=== PATIENT | male | born 1940 | race Caucasian/White ===

== ENCOUNTER 2018-01-17 18:38 | Emergency (ER) | payer MEDICARE, BC ==
[2018-01-17] MEDS ORDERED: Sodium Chloride 0.9% 10 ML Syringe FLUSH PRN (19:09)
--- NOTE | 2018-01-17 19:21 | EDM.PDOC ---
ED HPI GENERAL MEDICAL PROBLEM - General Chief Complaint: Respiratory Problem Stated Complaint: SOB Time Seen by Provider: 01/17/18 19:05 Source of Information: Reports: Patient, Family History Limitations: Reports: No Limitations - History of Present Illness INITIAL COMMENTS - FREE TEXT/NARRATIVE: Mio is a 77-year-old male, history of hypertension, coronary artery disease status post stent placement, atrial fibrillation with pacemaker placement this last year, on warfarin who presents to the emergency department today with a 3 week history of orthopnea. Patient denies any URI symptoms, dyspnea on exertion , fever, chills. Patient denies any history of heart failure. He is currently on Hyzaar. Patient had his pacemaker placed in September of this year shortly thereafter he sustained a CVA with left-sided deficits which he has essentially completely recovered from. Patient reports that he has not been able to sleep for the last 3-4 nights secondary to the shortness of breath and has to sleep sitting up in a chair. Patient denies any lower extremity swelling or any recent weight gain. Patient denies any hemoptysis. Patient reports he has been eating and drinking well. Patient denies any chest pain, he did take one nitroglycerin prior to arrival here to see if this helped with his symptoms, he reports no relief with this. Onset: Gradual Duration: Week(s): (3) - Related Data Allergies Allergy/AdvReac Type Severity Reaction Status Date / Time bupropion [From Contrave] Allergy Nausea and Verified 01/17/18 20:31 Vomiting naltrexone [From Contrave] Allergy Nausea and Verified 01/17/18 20:31 Vomiting angiogram dye Allergy Hives Uncoded 01/17/18 20:31 Home Meds: Home Meds Acarbose [Precose] 50 mg PO TID 09/08/13 [History] Calcium Carb & Citrate/Vit D3 [Calcium + Vitamin D3 Caplet] 1 each PO DAILY [History] Cholecalciferol (Vitamin D3) [Vitamin D3] 5,000 units PO DAILY 09/08/13 [History ] Cyanocobalamin (Vitamin B-12) [Vitamin B-12] 1,000 mcg PO DAILY 09/08/13 [ History] Losartan/Hydrochlorothiazide [Hyzaar 100-12.5 Tablet] 1 each PO DAILY 09/08/13 [ History] Multivitamin [Multi-Vitamin Daily] 1 tab PO BID 09/08/13 [History] Vitamin B Complex 1 each PO DAILY 09/08/13 [History] Sotalol HCl [Sotalol] 40 mg PO BID 06/20/15 [History] Warfarin [Coumadin] 7.5 mg PO DAILY 06/20/15 [History] Aspirin [Lo-Dose Aspirin EC] 81 mg PO DAILY 09/18/17 [History] Liraglutide [Victoza] 0.6 mg SQ DAILY 09/18/17 [History] Nitroglycerin [Nitrostat] 0.4 mg SL ASDIRECTED 09/18/17 [History] Isosorbide Mononitrate [Imdur] 30 mg PO DAILY 01/17/18 [History] Past Medical History Cardiovascular History: Reports: Afib, CAD, Stents Genitourinary History: Reports: Prostate Disorder, Other (See Below) Other Genitourinary History: Frequent nocturnal urination Endocrine/Metabolic History: Reports: Diabetes, Type II, Other (See Below) Other Endocrine/Metabolic History: 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 - Infectious Disease History Infectious Disease History: Reports: Chicken Pox, Measles, Mumps - Past Surgical History HEENT Surgical History: Reports: Retinal, Other (See Below) Cardiovascular Surgical History: Reports: Cardiac Ablation GI Surgical History: Reports: Appendectomy, Bariatric Procedure, Colonoscopy, Other (See Below) Musculoskeletal Surgical History: Reports: Arthroscopic Knee, Other (See Below) Social & Family History - Family History Cardiac: Reports: CAD Oncologic: Reports: Uterine - Tobacco Use Smoking Status *Q: Never Smoker - Caffeine Use Caffeine Use: Reports: Coffee - Recreational Drug Use Recreational Drug Use: No ED ROS GENERAL - Review of Systems Review Of Systems: ROS reveals no pertinent complaints other than HPI. ED EXAM, GENERAL - Physical Exam Exam: See Below Exam Limited By: No Limitations General Appearance: Alert, WD/WN, No Apparent Distress Eye Exam: Bilateral Eye: EOMI Ears: Normal External Exam Respiratory/Chest: No Respiratory Distress, Lungs Clear, Normal Breath Sounds, Chest Non-Tender Cardiovascular: Normal Peripheral Pulses, No JVD, No Murmur, Other (None pitting lower extremity peripheral edema) GI/Abdominal: Normal Bowel Sounds, Soft, Non-Tender Extremities: Normal Inspection Neurological: Alert, Oriented, CN II-XII Intact Psychiatric: Normal Affect, Normal Mood Skin Exam: Warm, Dry, Intact Lymphatic: No Adenopathy EKG INTERPRETATION EKG Date: 01/17/18 Time: 19:36 Rhythm: Other (atrial paced) [place]: Normal P-Wave: Present QRS: Normal ST-T: Normal QT: Normal Comparison: Change From Previous EKG (Paced) Course - Vital Signs Last Recorded V/S: Last Vital Signs Temp 36.6 C 01/17/18 19:30 Pulse 60 01/17/18 20:15 Resp 12 01/17/18 19:48 BP 118/79 01/17/18 20:15 Pulse Ox 92 L 01/17/18 20:15 Patient did have a stress test on September 26 which revealed an ejection fraction of 67% there was a small perfusion defect in the inferior lateral wall towards the apex with normal wall motion. Mio is a 77-year-old male, history of recent CVA, pacemaker placement, on warfarin who presents to the emergency department today with 3 week history of orthopnea. Please refer to history of present illness and focused exam. Patient arrives here hemodynamically stable, he is afebrile, he is not hypoxic nor is he in any acute respiratory distress. Exam reveals clear lung sounds, he has no evidence of JVD or pitting edema. Concerns for failure although given his recent ejection fraction of 65% I feel this is unlikely. Question if this is a medication side effect that he has had no recent changes in his medications. Patient has had no upper respiratory symptoms, fever or chills to indicate a upper respiratory infection. EKG was obtained on arrival and is paced with no acute ischemic findings. Chest x-ray was obtained and is clear with no effusions or signs of failure/ fluid overload. Blood work today is reassuring with a normal white count, hemoglobin is very stable at 14.7. INR is mildly subtherapeutic at 1.88. [place] panel returns with a sodium of 139, BUN is mildly elevated at 20 and remaining CMP is within normal limits. Troponin is undetectable, d-dimer is negative. I discussed with patient his exam findings in test results today, it was at that time the patient did report he has not been wearing his CPAP machine for about the same duration as his orthopnea symptoms. Patient reports that his mask and doesn't seem to fit well any more and that he feels suffocated when he wears it. Patient was discussed in detail with patient importance of wearing this mask and the heart strain that sleep apnea can cause. I did request that patient follow up in clinic by Saturday or Saturday this next week, request was made on request here in the emergency department. Patient can discuss possible medication effects with regard to his symptoms as well as having his CPAP machine evaluated which I think is likely the major contributor in his presentation today. Patient for now was encouraged to continue his current medication regime. He was again educated on the importance of wearing his CPAP which she can certainly do if he is sitting in his chair that feels better than trying to lay down, reasons to return to the emergency department were discussed in detail with patient and his family, they're agreeable to plan of care patient was discharged in stable condition. - Orders/Labs/Meds Orders: Active Orders 24 hr Category Date Time Status EKG Documentation Completion [RC] ASDIRECTED Care 01/17/18 19:09 Active Peripheral IV Care [RC] . DIRECTED Care 01/17/18 19:09 Active Chest 2V [CR] Stat Exams 01/17/18 19:09 Taken Peripheral IV Insertion Adult [OM.PC] Routine Oth 01/17/18 19:09 Ordered EKG 12 Lead [EK] Stat Ther 01/17/18 19:08 Ordered Labs: Laboratory Tests 01/17/18 01/17/18 01/17/18 Range/Units 19:09 19:09 19:09 WBC 7.1 (4.5-11.0) K/uL RBC 4.99 (4.30-5.90) M/uL Hgb 14.7 (12.0-15.0) g/dL Hct 43.4 (40.0-54.0) % MCV 87 (80-98) fL MCH 30 (27-31) pg MCHC 34 (32-36) % Plt Count 311 (150-400) K/uL Neut % (Auto) 54 (36-66) % Lymph % (Auto) 32 (24-44) % [place] % (Auto) 11 H (2-6) % Eos % (Auto) 2 (2-4) % Baso % (Auto) 1 (0-1) % PT 20.0 H (9.5-12.0) sec INR 1.88 H (0.80-1.20) D-Dimer, Quantitative (0.0-400.0) ng/mL Sodium 139 L (140-148) mmol/L Potassium 3.9 (3.6-5.2) mmol/L Chloride 105 (100-108) mmol/L Carbon Dioxide 25 (21-32) mmol/L Anion Gap 12.9 (5.0-14.0) mmol/L BUN 20 H (7-18) mg/dL Creatinine 0.8 (0.8-1.3) mg/dL Est Cr Clr Drug Dosing 79.78 mL/min Estimated GFR (MDRD) > 60 (>60) Glucose 97 (74-106) mg/dL Calcium 8.9 (8.5-10.1) mg/dL Total Bilirubin 0.4 (0.2-1.0) mg/dL AST 23 (15-37) U/L ALT 32 (12-78) U/L Alkaline Phosphatase 59 (46-116) U/L Troponin I (0.000-0.056) ng/mL NT-Pro-B Natriuret Pep 49 (5-450) pg/mL Total Protein 6.9 (6.4-8.2) g/dL Albumin 3.7 (3.4-5.0) g/dL Globulin 3.2 (2.3-3.5) g/dL Albumin/Globulin Ratio 1.2 (1.2-2.2) 01/17/18 01/17/18 Range/Units 19:09 19:55 WBC (4.5-11.0) K/uL RBC (4.30-5.90) M/uL Hgb (12.0-15.0) g/dL Hct (40.0-54.0) % MCV (80-98) fL MCH (27-31) pg MCHC (32-36) % Plt Count (150-400) K/uL Neut % (Auto) (36-66) % Lymph % (Auto) (24-44) % [place] % (Auto) (2-6) % Eos % (Auto) (2-4) % Baso % (Auto) (0-1) % PT (9.5-12.0) sec INR (0.80-1.20) D-Dimer, Quantitative 170 (0.0-400.0) ng/mL Sodium (140-148) mmol/L Potassium (3.6-5.2) mmol/L Chloride (100-108) mmol/L Carbon Dioxide (21-32) mmol/L Anion Gap (5.0-14.0) mmol/L BUN (7-18) mg/dL Creatinine (0.8-1.3) mg/dL Est Cr Clr Drug Dosing mL/min Estimated GFR (MDRD) (>60) Glucose (74-106) mg/dL Calcium (8.5-10.1) mg/dL Total Bilirubin (0.2-1.0) mg/dL AST (15-37) U/L ALT (12-78) U/L Alkaline Phosphatase (46-116) U/L Troponin I < 0.017 (0.000-0.056) ng/mL NT-Pro-B Natriuret Pep (5-450) pg/mL Total Protein (6.4-8.2) g/dL Albumin (3.4-5.0) g/dL Globulin (2.3-3.5) g/dL Albumin/Globulin Ratio (1.2-2.2) Meds: Medications Discontinued Medications Generic Name Dose Route Start Last Admin Trade Name Freq PRN Reason Stop Dose Admin Sodium Chloride 10 ml 01/17/18 19:09 01/17/18 19:25 Saline Flush FLUSH 10 ml ASDIRECTED PRN Administration Keep Vein Open Departure - Departure Time of Disposition: 21:15 Disposition: Home, Self-Care 01 Clinical Impression: Orthopnea - Discharge Information Instructions: Sleep Apnea Referrals: Horace Sheridan PA [Primary Care Provider] - Forms: ED Department Discharge Additional Instructions: You need to wear your CPAP!!! I have left a request for your primary care clinic to call you to schedule an appt for Saturday or Saturday for follow up. You heart and lungs look great here today. It was a pleasure meeting you and your family. - My Orders Last 24 Hours: My Active Orders 01/17/18 19:08 EKG 12 Lead [EK] Stat 01/17/18 19:09 EKG Documentation Completion [RC] ASDIRECTED Peripheral IV Care [RC] . DIRECTED Chest 2V [CR] Stat Peripheral IV Insertion Adult [OM.PC] Routine - Assessment/Plan Last 24 Hours: My Active Orders 01/17/18 19:08 EKG 12 Lead [EK] Stat 01/17/18 19:09 EKG Documentation Completion [RC] ASDIRECTED Peripheral IV Care [RC] . DIRECTED Chest 2V [CR] Stat Peripheral IV Insertion Adult [OM.PC] Routine
[2018-01-17 20:15] VITALS: BP 118/79
--- NOTE | 2018-01-20 08:39 | CR ---
CHEST: 2 view CLINICAL HISTORY:Orthopnea COMPARISON:2016 FINDINGS: Heart size and pulmonary vascularity are normal. Patient has a permanent cardiac pacer. Th ere are atherosclerotic changes in the aorta.. There is a retrocardiac hiatal hernia. There are degen erative changes in the spine. Lung malin are clear. IMPRESSION: Permanent cardiac pacer in place No acute cardiopulmonary process
== END 2018-01-17 21:15 | disposition home or self-care (01) ==
LOC: JP.ED 18:38
DX: R06.01 Orthopnea (principal); Z88.8 Allergy status to other drugs, medicaments and biological substances; Z91.041 Radiographic dye allergy status; Z79.82 Long term (current) use of aspirin; Z79.899 Other long term (current) drug therapy
CPT/HCPCS: 36415; 71046; 80053; 83880; 84484; 85025; 85379; 85610; 93005; 99284; J7050

== ENCOUNTER 2018-02-25 14:52 | Emergency (ER) | payer MEDICARE, BC ==
--- NOTE | 2018-02-25 15:25 | EDM.PDOC ---
ED HPI GENERAL MEDICAL PROBLEM - General Chief Complaint: General Stated Complaint: FEELING UNWELL Time Seen by Provider: 02/25/18 15:20 Source of Information: Reports: Patient, Family History Limitations: Reports: No Limitations - History of Present Illness INITIAL COMMENTS - FREE TEXT/NARRATIVE: 77-year-old male with generalized weakness, persistent fatigue but inability to sleep. He feels depressed and having generalized malaise. He is on an antibiotic to treat a UTI. Onset: Gradual (Symptoms have worsened over the last several days) Severity: Moderate Associated Symptoms: Reports: Loss of Appetite, Malaise, Weakness. Denies: Confusion, Fever/Chills, Headaches, Shortness of Breath dENNIES Pain Score (Numeric/FACES): 0 - Related Data Allergies Allergy/AdvReac Type Severity Reaction Status Date / Time bupropion [From Contrave] Allergy Nausea and Verified 02/25/18 15:37 Vomiting naltrexone [From Contrave] Allergy Nausea and Verified 02/25/18 15:37 Vomiting angiogram dye Allergy Hives Uncoded 02/25/18 15:37 Home Meds: Home Meds Acarbose [Precose] 50 mg PO TID 09/08/13 [History] Calcium Carb & Citrate/Vit D3 [Calcium + Vitamin D3 Caplet] 1 each PO DAILY [History] Cholecalciferol (Vitamin D3) [Vitamin D3] 5,000 units PO DAILY 09/08/13 [History ] Cyanocobalamin (Vitamin B-12) [Vitamin B-12] 1,000 mcg PO DAILY 09/08/13 [ History] Losartan/Hydrochlorothiazide [Hyzaar 100-12.5 Tablet] 1 each PO DAILY 09/08/13 [ History] Multivitamin [Multi-Vitamin Daily] 1 tab PO BID 09/08/13 [History] Vitamin B Complex 1 each PO DAILY 09/08/13 [History] Sotalol HCl [Sotalol] 40 mg PO BID 06/20/15 [History] Warfarin [Coumadin] 7.5 mg PO DAILY 06/20/15 [History] Aspirin [Lo-Dose Aspirin EC] 81 mg PO DAILY 09/18/17 [History] Liraglutide [Victoza] 0.6 mg SQ DAILY 09/18/17 [History] Nitroglycerin [Nitrostat] 0.4 mg SL ASDIRECTED 09/18/17 [History] Isosorbide Mononitrate [Imdur] 30 mg PO DAILY 01/17/18 [History] Ciprofloxacin HCl [Cipro] 1 tab PO BID 02/25/18 [History] Escitalopram [Lexapro] 1 tab PO BEDTIME 02/25/18 [History] Polyethylene Glycol 3350 [MiraLAX] 1 pack PO ASDIRECTED 02/25/18 [History] busPIRone [Buspar] 1 tab PO DAILY 02/25/18 [History] Past Medical History Cardiovascular History: Reports: Afib, CAD, Stents Genitourinary History: Reports: Prostate Disorder, Other (See Below) Other Genitourinary History: Frequent nocturnal urination Endocrine/Metabolic History: Reports: Diabetes, Type II, Other (See Below) Other Endocrine/Metabolic History: 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 - Infectious Disease History Infectious Disease History: Reports: Chicken Pox, Measles, Mumps - Past Surgical History HEENT Surgical History: Reports: Retinal, Other (See Below) Cardiovascular Surgical History: Reports: Cardiac Ablation GI Surgical History: Reports: Appendectomy, Bariatric Procedure, Colonoscopy, Other (See Below) Musculoskeletal Surgical History: Reports: Arthroscopic Knee, Other (See Below) Social & Family History - Family History Cardiac: Reports: CAD Oncologic: Reports: Uterine - Caffeine Use Caffeine Use: Reports: Coffee ED ROS GENERAL - Review of Systems Review Of Systems: See Below Constitutional: Reports: Malaise, Weakness, Decreased Appetite. Denies: Fever, Chills HEENT: Reports: No Symptoms Respiratory: Denies: Shortness of Breath Cardiovascular: Denies: Chest Pain GI/Abdominal: Denies: Abdominal Pain, Nausea, Vomiting Musculoskeletal: Reports: No Symptoms Skin: Reports: Pallor Neurological: Denies: Headache Psychiatric: Reports: Anxiety, Depression, Other (Insomnia) ED EXAM, GENERAL - Physical Exam Exam: See Below Exam Limited By: No Limitations General Appearance: Alert, No Apparent Distress Eye Exam: Bilateral Eye: EOMI, Normal Inspection Throat/Mouth: Normal Inspection Head: Atraumatic Neck: Normal Inspection Respiratory/Chest: No Respiratory Distress, Lungs Clear Cardiovascular: No Murmur, Irregularly Irregular GI/Abdominal: Normal Bowel Sounds, Soft, Non-Tender Extremities: Normal Inspection. No: Pedal Edema Neurological: Alert, Oriented, No Motor/Sensory Deficits Psychiatric: Flat Affect Skin Exam: Warm, Dry Course - Vital Signs Last Recorded V/S: Last Vital Signs Temp 97.9 F 02/25/18 17:20 Pulse 72 02/25/18 17:20 Resp 18 02/25/18 17:20 BP 124/68 02/25/18 17:20 Pulse Ox 96 02/25/18 17:20 - Orders/Labs/Meds Labs: Laboratory Tests 02/25/18 02/25/18 02/25/18 Range/Units 15:48 15:48 15:59 WBC 7.4 (4.5-11.0) K/uL RBC 5.17 (4.30-5.90) M/uL Hgb 15.3 H (12.0-15.0) g/dL Hct 45.3 (40.0-54.0) % MCV 88 (80-98) fL MCH 30 (27-31) pg MCHC 34 (32-36) % Plt Count 261 (150-400) K/uL Neut % (Auto) 63 (36-66) % Lymph % (Auto) 25 (24-44) % [place] % (Auto) 11 H (2-6) % Eos % (Auto) 1 L (2-4) % Baso % (Auto) 0 (0-1) % ESR 5 (0-20) mm/hr Sodium 139 L (140-148) mmol/L Potassium 4.0 (3.6-5.2) mmol/L Chloride 104 (100-108) mmol/L Carbon Dioxide 28 (21-32) mmol/L Anion Gap 11.0 (5.0-14.0) mmol/L BUN 19 H (7-18) mg/dL Creatinine 0.9 (0.8-1.3) mg/dL Est Cr Clr Drug Dosing 70.92 mL/min Estimated GFR (MDRD) > 60 (>60) Glucose 92 (74-106) mg/dL Calcium 8.7 (8.5-10.1) mg/dL Total Bilirubin 0.5 (0.2-1.0) mg/dL AST 24 (15-37) U/L ALT 34 (12-78) U/L Alkaline Phosphatase 53 (46-116) U/L Creatine Kinase 57 (39-308) U/L Total Protein 6.8 (6.4-8.2) g/dL Albumin 3.6 (3.4-5.0) g/dL Globulin 3.2 (2.3-3.5) g/dL Albumin/Globulin Ratio 1.1 L (1.2-2.2) TSH, Ultra Sensitive 1.500 (0.358-3.740) uIU/mL Urine Color Yellow Urine Appearance Slightly cloudy Urine pH 6.0 (4.5-8.0) Ur Specific [place] 1.010 (1.008-1.030) Urine Protein Negative (NEGATIVE) mg/dL Urine Glucose (UA) Normal (NEGATIVE) mg/dL Urine Ketones Negative (NEGATIVE) mg/dL Urine Occult Blood Negative (NEGATIVE) Urine Nitrite Negative (NEGAITVE) Urine Bilirubin Negative (NEGATIVE) Urine Urobilinogen Normal (NORMAL) mg/dL Ur Leukocyte Esterase Negative (NEGATIVE) Urine RBC Not seen (0-5) Urine WBC Not seen (0-5) Ur Epithelial Cells Not seen Amorphous Sediment Rare Urine Bacteria Not seen Urine Mucus Rare Meds: Medications Discontinued Medications Generic Name Dose Route Start Last Admin Trade Name Freq PRN Reason Stop Dose Admin Sodium Chloride 1,000 mls @ 1,000 mls/hr 02/25/18 16:15 02/25/18 16:14 Normal Saline IV 1,000 mls/hr ASDIRECTED [facility] Administration - Re-Assessments/Exams Free Text/Narrative Re-Assessment/Exam: 02/25/18 16:39 A UA was obtained which showed no active infection, there was some bacteria but also epithelial cells. Likely contamination. CBC, CMP, CK and sedimentation rate were obtained. Also TSH. Patient was placed on cardiac monitoring and had atrial fibrillation with a controlled rate of 70-80. He is on anticoagulation. 02/25/18 17:05 CBC, CMP, CK were all normal, sedimentation rate was only 5. TSH was normal. 02/25/18 17:06 After the liter of fluid was given, patient was discharged with reassurance that physically he is healthy. He is going to stop the ciprofloxacin, it may be giving him some side effects. Recheck as scheduled. He can return if worsening such as fevers, shortness of breath or increased weakness. Departure - Departure Time of Disposition: 17:37 Disposition: Home, Self-Care 01 Condition: Fair Clinical Impression: Weakness generalized Atrial fibrillation Qualifiers: Atrial fibrillation type: paroxysmal Qualified Code(s): I48.0 - Paroxysmal atrial fibrillation - Discharge Information Instructions: Weakness Referrals: Horace Sheridan PA [Primary Care Provider] - Forms: ED Department Discharge Care Plan Goals: Stop ciprofloxacin, increase activity as tolerated and continue your other medications. Do something fun. Recheck if worsening or concerns such as fever or shortness of breath. Otherwise recheck as scheduled.
[2018-02-25] MEDS ORDERED: Sodium Chloride 0.9% 1,000 ML IV SCH (16:15)
[2018-02-25 17:36] VITALS: BP 124/68
== END 2018-02-25 17:37 | disposition home or self-care (01) ==
LOC: JP.ED 14:52
DX: I48.0 Paroxysmal atrial fibrillation (principal); E11.9 Type 2 diabetes mellitus without complications; Z79.82 Long term (current) use of aspirin; Z79.01 Long term (current) use of anticoagulants; Z91.041 Radiographic dye allergy status; Z88.8 Allergy status to other drugs, medicaments and biological substances
CPT/HCPCS: 36415; 80053; 81001; 82550; 84443; 85025; 85651; 99285; J7030

== ENCOUNTER 2018-11-08 06:33 | Inpatient (IN) | payer MEDICARE, BC ==
[2018-11-08] MEDS ORDERED: Sodium Chloride 0.9% 1,000 ML IV SCH ×3 (07:15→14:00)
--- NOTE | 2018-11-08 07:37 | EDM.PDOC ---
ED HPI GENERAL MEDICAL PROBLEM - General Chief Complaint: Chest Pain Stated Complaint: NOT ACTING JUST RIGHT BECAME STIFF Time Seen by Provider: 11/08/18 07:35 Source of Information: Reports: Patient, Family History Limitations: Reports: No Limitations - History of Present Illness INITIAL COMMENTS - FREE TEXT/NARRATIVE: pt got up to take his insulin this am and he had a possible brief loss of consciouness. He looked like he kind of stiffened out. 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 He has recovered alot of his strength. He is alert at this time and is able to answer questions. Onset: Today, Other (pt had a syncopal episode and did stiffen out. ) Duration: Hour(s): Location: Reports: Head, Chest, Abdomen, Other (pt did have some black tarry looking stools for several days at home. His occult blood was neg today. ) denies pain Pain Score (Numeric/FACES): 0 - Related Data Allergies Allergy/AdvReac Type Severity Reaction Status Date / Time bupropion [From Contrave] Allergy Nausea and Verified 11/08/18 06:43 Vomiting naltrexone [From Contrave] Allergy Nausea and Verified 11/08/18 06:43 Vomiting angiogram dye Allergy Hives Uncoded 11/08/18 06:43 Home Meds: Home Meds Acarbose [Precose] 50 mg PO TID 09/08/13 [History] Calcium Carb & Citrate/Vit D3 [Calcium + Vitamin D3 Caplet] 1 each PO DAILY [History] Cholecalciferol (Vitamin D3) [Vitamin D3] 5,000 units PO DAILY 09/08/13 [History ] Cyanocobalamin (Vitamin B-12) [Vitamin B-12] 1,000 mcg PO DAILY 09/08/13 [ History] Losartan/Hydrochlorothiazide [Hyzaar 100-12.5 Tablet] 1 each PO DAILY 09/08/13 [ History] Multivitamin [Multi-Vitamin Daily] 1 tab PO BID 09/08/13 [History] Vitamin B Complex 1 each PO DAILY 09/08/13 [History] Sotalol HCl [Sotalol] 40 mg PO BID 06/20/15 [History] Warfarin [Coumadin] 7.5 mg PO DAILY 06/20/15 [History] Aspirin [Lo-Dose Aspirin EC] 81 mg PO DAILY 09/18/17 [History] Liraglutide [Victoza] 0.6 mg SQ DAILY 09/18/17 [History] Nitroglycerin [Nitrostat] 0.4 mg SL ASDIRECTED 09/18/17 [History] Isosorbide Mononitrate [Imdur] 30 mg PO DAILY 01/17/18 [History] Escitalopram [Lexapro] 1 tab PO BEDTIME 02/25/18 [History] Polyethylene Glycol 3350 [MiraLAX] 1 pack PO ASDIRECTED 02/25/18 [History] busPIRone [Buspar] 1 tab PO DAILY 02/25/18 [History] Warfarin Sodium [Coumadin] 10 mg PO ASDIRECTED 11/08/18 [History] Past Medical History HEENT History: Reports: Hard of Hearing, Impaired Vision Cardiovascular History: Reports: Afib, CAD, Pacemaker, Stents Genitourinary History: Reports: Prostate Disorder, Other (See Below) Other Genitourinary History: Frequent nocturnal urination Neurological History: Reports: CVA, Other (See Below) Other Neuro History: 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 Endocrine/Metabolic History: Reports: Diabetes, Type II, Other (See Below) Other Endocrine/Metabolic History: 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 Hematologic History: Reports: Anticoagulation Therapy - Infectious Disease History Infectious Disease History: Reports: Chicken Pox, Measles, Mumps - Past Surgical History HEENT Surgical History: Reports: Cataract Surgery, Retinal Cardiovascular Surgical History: Reports: Cardiac Ablation GI Surgical History: Reports: Appendectomy, Bariatric Procedure, Colonoscopy Musculoskeletal Surgical History: Reports: Arthroscopic Knee Social & Family History - Family History Cardiac: Reports: CAD Oncologic: Reports: Uterine - Tobacco Use Smoking Status *Q: Never Smoker - Caffeine Use Caffeine Use: Reports: Coffee - Recreational Drug Use Recreational Drug Use: No ED ROS GENERAL - Review of Systems Review Of Systems: See Below Constitutional: Reports: Weakness HEENT: Reports: No Symptoms Respiratory: Reports: No Symptoms Cardiovascular: Reports: No Symptoms Endocrine: Reports: No Symptoms GI/Abdominal: Reports: Other (pt has had some pain in his abdoman off and on. ) : Reports: No Symptoms Musculoskeletal: Reports: No Symptoms Skin: Reports: No Symptoms Neurological: Reports: No Symptoms ED EXAM, GENERAL - Physical Exam Exam: See Below Free Text/Narrative:: pt arived with a history of passing out at home and stiffing out. He was up this am and was taking his insulin. Exam Limited By: No Limitations General Appearance: Alert, No Apparent Distress, Other ( Just as he pulled into the ambulance entrace he had some chest pain which lasted a few seconds. Pupils are equal and reactive. ) Ears: Normal TMs Nose: Normal Inspection Throat/Mouth: Normal Inspection Head: Atraumatic Neck: Normal Inspection Respiratory/Chest: No Respiratory Distress Cardiovascular: Regular Rate, Rhythm GI/Abdominal: Soft, Non-Tender (Male) Exam: Deferred Rectal (Males) Exam: Other (pt did have some very dark looking stool on rectal exam. He did not have any palpable masses. ) Back Exam: Normal Inspection Extremities: Normal Inspection Neurological: Alert, Oriented, Normal Cognition Psychiatric: Anxious Skin Exam: Other (p did look very pale and and he was diaphoretic. ) Course - Vital Signs Last Recorded V/S: Last Vital Signs Temp 35.1 C L 11/08/18 06:47 Pulse 60 11/08/18 08:27 Resp 12 11/08/18 08:27 BP 94/55 L 11/08/18 08:27 Pulse Ox 98 11/08/18 08:27 - Orders/Labs/Meds Orders: Active Orders 24 hr Category Date Time Status EKG Documentation Completion [RC] ASDIRECTED Care 11/08/18 08:07 Active RED BLOOD CELLS LP [BBK] Stat Lab 11/08/18 07:33 Results TYPE AND SCREEN [BBK] Stat Lab 11/08/18 07:33 Results Sodium Chloride 0.9% [Normal Saline] 1,000 ml Med 11/08/18 07:15 Active IV ASDIRECTED Sodium Chloride 0.9% [Normal Saline] 1,000 ml Med 11/08/18 08:15 Active IV ASDIRECTED EKG 12 Lead [EK] Routine Ther 11/08/18 08:07 Ordered Medication Orders Sodium Chloride (Normal Saline) 1,000 mls @ 999 mls/hr IV ASDIRECTED PERLA Last Admin: 11/08/18 07:35 Dose: 999 mls/hr Sodium Chloride (Normal Saline) 1,000 mls @ 999 mls/hr IV ASDIRECTED PERLA Last Admin: 11/08/18 08:09 Dose: 999 mls/hr Labs: Laboratory Tests 11/08/18 11/08/18 11/08/18 Range/Units 07:20 07:20 07:20 WBC 8.4 (4.5-11.0) K/uL RBC 3.88 L (4.30-5.90) M/uL Hgb 11.3 L D (12.0-15.0) g/dL Hct 35.1 L (40.0-54.0) % MCV 91 (80-98) fL MCH 29 (27-31) pg MCHC 32 (32-36) % Plt Count 257 (150-400) K/uL Neut % (Auto) 75 H (36-66) % Lymph % (Auto) 18 L (24-44) % [place] % (Auto) 6 (2-6) % Eos % (Auto) 1 L (2-4) % Baso % (Auto) 0 (0-1) % PT 44.7 H (9.5-12.0) sec INR 4.42 H* D (0.80-1.20) Sodium 142 (140-148) mmol/L Potassium 4.1 (3.6-5.2) mmol/L Chloride 108 (100-108) mmol/L Carbon Dioxide 25 (21-32) mmol/L Anion Gap 8.7 (5.0-14.0) mmol/L BUN 45 H D (7-18) mg/dL Creatinine 0.9 (0.8-1.3) mg/dL Est Cr Clr Drug Dosing 65.28 mL/min Estimated GFR (MDRD) > 60 (>60) Glucose 149 H (74-106) mg/dL Lactic Acid (0.4-2.0) mmol/L Calcium 8.3 L (8.5-10.1) mg/dL Total Bilirubin 0.3 (0.2-1.0) mg/dL AST 21 (15-37) U/L ALT 41 (12-78) U/L Alkaline Phosphatase 44 L (46-116) U/L Troponin I (0.000-0.056) ng/mL Total Protein 5.6 L (6.4-8.2) g/dL Albumin 2.9 L (3.4-5.0) g/dL Globulin 2.7 (2.3-3.5) g/dL Albumin/Globulin Ratio 1.1 L (1.2-2.2) Urine Color Urine Appearance Urine pH (4.5-8.0) Ur Specific [place] (1.008-1.030) Urine Protein (NEGATIVE) mg/dL Urine Glucose (UA) (NEGATIVE) mg/dL Urine Ketones (NEGATIVE) mg/dL Urine Occult Blood (NEGATIVE) Urine Nitrite (NEGAITVE) Urine Bilirubin (NEGATIVE) Urine Urobilinogen (NORMAL) mg/dL Ur Leukocyte Esterase (NEGATIVE) Urine RBC (0-5) Urine WBC (0-5) Ur Epithelial Cells Amorphous Sediment Urine Bacteria Urine Mucus Blood Type Gel Antibody Screen Crossmatch 11/08/18 11/08/18 11/08/18 Range/Units 07:33 07:37 08:06 WBC (4.5-11.0) K/uL RBC (4.30-5.90) M/uL Hgb (12.0-15.0) g/dL Hct (40.0-54.0) % MCV (80-98) fL MCH (27-31) pg MCHC (32-36) % Plt Count (150-400) K/uL Neut % (Auto) (36-66) % Lymph % (Auto) (24-44) % [place] % (Auto) (2-6) % Eos % (Auto) (2-4) % Baso % (Auto) (0-1) % PT (9.5-12.0) sec INR (0.80-1.20) Sodium (140-148) mmol/L Potassium (3.6-5.2) mmol/L Chloride (100-108) mmol/L Carbon Dioxide (21-32) mmol/L Anion Gap (5.0-14.0) mmol/L BUN (7-18) mg/dL Creatinine (0.8-1.3) mg/dL Est Cr Clr Drug Dosing mL/min Estimated GFR (MDRD) (>60) Glucose (74-106) mg/dL Lactic Acid 1.8 (0.4-2.0) mmol/L Calcium (8.5-10.1) mg/dL Total Bilirubin (0.2-1.0) mg/dL AST (15-37) U/L ALT (12-78) U/L Alkaline Phosphatase (46-116) U/L Troponin I < 0.017 (0.000-0.056) ng/mL Total Protein (6.4-8.2) g/dL Albumin (3.4-5.0) g/dL Globulin (2.3-3.5) g/dL Albumin/Globulin Ratio (1.2-2.2) Urine Color Urine Appearance Urine pH (4.5-8.0) Ur Specific [place] (1.008-1.030) Urine Protein (NEGATIVE) mg/dL Urine Glucose (UA) (NEGATIVE) mg/dL Urine Ketones (NEGATIVE) mg/dL Urine Occult Blood (NEGATIVE) Urine Nitrite (NEGAITVE) Urine Bilirubin (NEGATIVE) Urine Urobilinogen (NORMAL) mg/dL Ur Leukocyte Esterase (NEGATIVE) Urine RBC (0-5) Urine WBC (0-5) Ur Epithelial Cells Amorphous Sediment Urine Bacteria Urine Mucus Blood Type A POSITIVE Gel Antibody Screen Negative Crossmatch See Detail 11/08/18 Range/Units 08:26 WBC (4.5-11.0) K/uL RBC (4.30-5.90) M/uL Hgb (12.0-15.0) g/dL Hct (40.0-54.0) % MCV (80-98) fL MCH (27-31) pg MCHC (32-36) % Plt Count (150-400) K/uL Neut % (Auto) (36-66) % Lymph % (Auto) (24-44) % [place] % (Auto) (2-6) % Eos % (Auto) (2-4) % Baso % (Auto) (0-1) % PT (9.5-12.0) sec INR (0.80-1.20) Sodium (140-148) mmol/L Potassium (3.6-5.2) mmol/L Chloride (100-108) mmol/L Carbon Dioxide (21-32) mmol/L Anion Gap (5.0-14.0) mmol/L BUN (7-18) mg/dL Creatinine (0.8-1.3) mg/dL Est Cr Clr Drug Dosing mL/min Estimated GFR (MDRD) (>60) Glucose (74-106) mg/dL Lactic Acid (0.4-2.0) mmol/L Calcium (8.5-10.1) mg/dL Total Bilirubin (0.2-1.0) mg/dL AST (15-37) U/L ALT (12-78) U/L Alkaline Phosphatase (46-116) U/L Troponin I (0.000-0.056) ng/mL Total Protein (6.4-8.2) g/dL Albumin (3.4-5.0) g/dL Globulin (2.3-3.5) g/dL Albumin/Globulin Ratio (1.2-2.2) Urine Color Yellow Urine Appearance Clear Urine pH 6.0 (4.5-8.0) Ur Specific [place] 1.015 (1.008-1.030) Urine Protein Negative (NEGATIVE) mg/dL Urine Glucose (UA) Normal (NEGATIVE) mg/dL Urine Ketones Negative (NEGATIVE) mg/dL Urine Occult Blood Negative (NEGATIVE) Urine Nitrite Negative (NEGAITVE) Urine Bilirubin Negative (NEGATIVE) Urine Urobilinogen Normal (NORMAL) mg/dL Ur Leukocyte Esterase Negative (NEGATIVE) Urine RBC Not seen (0-5) Urine WBC Not seen (0-5) Ur Epithelial Cells Not seen Amorphous Sediment Not seen Urine Bacteria Not seen Urine Mucus Not seen Blood Type Gel Antibody Screen Crossmatch Meds: Medications Generic Name Dose Route Start Last Admin Trade Name Freq PRN Reason Stop Dose Admin Sodium Chloride 1,000 mls @ 999 mls/hr 11/08/18 07:15 11/08/18 07:35 Normal Saline IV 999 mls/hr ASDIRECTED PERLA Administration Sodium Chloride 1,000 mls @ 999 mls/hr 11/08/18 08:15 11/08/18 08:09 Normal Saline IV 999 mls/hr ASDIRECTED PERLA Administration Discontinued Medications Generic Name Dose Route Start Last Admin Trade Name Freq PRN Reason Stop Dose Admin Phytonadione 3 mg/ Sodium 50.3 mls @ 100 mls/hr 11/08/18 08:30 11/08/18 08:32 Chloride IV 11/08/18 09:00 100 mls/hr ONETIME ONE Administration - Re-Assessments/Exams Free Text/Narrative Re-Assessment/Exam: 11/08/18 09:17 pt did have a neg occult. His inr is greater than 4. He was given 3 mg of vit k in the lite that he had black tarry stools for several days and had a hg of 11. He had a cat scan of the head. His trop was neg. He had a clear urine and and a neg lactic acid. His ekg showed a paced rhythm Pt was very hypotensive and was given 2 liters of fluid. He is alert and able to give a good history. . 11/08/18 09:19 Departure - Departure Time of Disposition: 09:20 Disposition: Admitted As Inpatient 68 Condition: Fair Clinical Impression: Hypotension, Anemia, Elevated INR, Dehydration Atrial fibrillation Qualifiers: Atrial fibrillation type: paroxysmal Qualified Code(s): I48.0 - Paroxysmal atrial fibrillation Referrals: Horace Sheridan PA [Primary Care Provider] - Forms: ED Department Discharge Care Plan Goals: admit to Dr boston - My Orders Last 24 Hours: My Active Orders 11/08/18 07:15 Sodium Chloride 0.9% [Normal Saline] 1,000 ml IV ASDIRECTED 11/08/18 07:33 RED BLOOD CELLS LP [BBK] Stat TYPE AND SCREEN [BBK] Stat 11/08/18 08:07 EKG Documentation Completion [RC] ASDIRECTED EKG 12 Lead [EK] Routine 11/08/18 08:15 Sodium Chloride 0.9% [Normal Saline] 1,000 ml IV ASDIRECTED - Assessment/Plan Last 24 Hours: My Active Orders 11/08/18 07:15 Sodium Chloride 0.9% [Normal Saline] 1,000 ml IV ASDIRECTED 11/08/18 07:33 RED BLOOD CELLS LP [BBK] Stat TYPE AND SCREEN [BBK] Stat 11/08/18 08:07 EKG Documentation Completion [RC] ASDIRECTED EKG 12 Lead [EK] Routine 11/08/18 08:15 Sodium Chloride 0.9% [Normal Saline] 1,000 ml IV ASDIRECTED
[2018-11-08] MEDS ORDERED: Phytonadione 3 MG in Sodium Chloride 0.9% 50 ML IV ONE ×2 (07:46→08:30)
--- NOTE | 2018-11-08 09:04 | CRLCT ---
INDICATION: Loss of consciousness. TECHNIQUE: 3 mm noncontrast axial imaging has been performed through the brain. FINDINGS: Ventricles, sulci, and cisterns are prominent consistent with generalized cerebral atrophy. Some cerebellar atrophy also noted. No acute intracerebral hemorrhage or midline shift is identified. No regional infarct noted. No skull fracture is noted. Upper paranasal sinuses and mastoid air cells are clear. IMPRESSION: Generalized cerebral atrophy is noted. No acute intracerebral hemorrhage or midline shift is seen. No regional infarct is seen. Dictated by Dimas Vera MD @ 11/08/2018 9:03:03 AM Please note that all CT scans at this facility use dose modulation, iterative reconstruction, and/or weight-based dosing when appropriate to reduce radiation dose to as low as reasonably achievable. Dictated by: Dimas Vera MD @ 11/08/2018 09:03:08 (Electronically Signed)
--- NOTE | 2018-11-08 13:21 | PCM.HP ---
H&P History of Present Illness - General Date of Service: 11/08/18 Admit Problem/Dx: Admission Diagnosis/Problem Admission Diagnosis/Problem Syncope Source of Information: Patient, Provider, RN Notes Reviewed History Limitations: Reports: No Limitations - History of Present Illness Initial Comments - Free Text/Narative: Adarsh is a 78-year-old gentleman who was admitted through the emergency department with weakness, lightheadedness, shortness of breath and syncope, secondary to upper GI bleed. He felt well until about 36 hours prior to admission when he noted symptoms of weakness and then began to have very dark black tarry stools. He felt weak throughout the day yesterday and this morning experienced to transient syncopal episodes. When he presented to the emergency department was found to be hypotensive and has received IV fluids. Hemoglobin was down to 11 and on recheck after a few hours is now 10. He is on oral anticoagulation with warfarin and his INR was found to be supratherapeutic at above 4. He has received 3 units of vitamin K in the emergency department. He is required more vigorous fluid boluses because of persistent hypotension, likely indicating ongoing active bleeding. He denies any symptoms of chest pain or pressure in his level of dyspnea has been stable. Blood pressure has improved modestly with IV fluid infusion. denies pain Pain Score (Numeric/FACES): 0 - Related Data Allergies/Adverse Reactions: Allergies Allergy/AdvReac Type Severity Reaction Status Date / Time bupropion [From Contrave] Allergy Nausea and Verified 11/08/18 06:43 Vomiting naltrexone [From Contrave] Allergy Nausea and Verified 11/08/18 06:43 Vomiting angiogram dye Allergy Hives Uncoded 11/08/18 06:43 Home Medications: Home Meds Acarbose [Precose] 50 mg PO TID 09/08/13 [History] Calcium Carb & Citrate/Vit D3 [Calcium + Vitamin D3 Caplet] 1 each PO DAILY [History] Cholecalciferol (Vitamin D3) [Vitamin D3] 5,000 units PO DAILY 09/08/13 [History ] Cyanocobalamin (Vitamin B-12) [Vitamin B-12] 1,000 mcg PO DAILY 09/08/13 [ History] Losartan/Hydrochlorothiazide [Hyzaar 100-12.5 Tablet] 1 each PO DAILY 09/08/13 [ History] Multivitamin [Multi-Vitamin Daily] 1 tab PO BID 09/08/13 [History] Vitamin B Complex 1 each PO DAILY 09/08/13 [History] Sotalol HCl [Sotalol] 40 mg PO BID 06/20/15 [History] Warfarin [Coumadin] 7.5 mg PO DAILY 06/20/15 [History] Aspirin [Lo-Dose Aspirin EC] 81 mg PO DAILY 09/18/17 [History] Liraglutide [Victoza] 0.6 mg SQ DAILY 09/18/17 [History] Nitroglycerin [Nitrostat] 0.4 mg SL ASDIRECTED 09/18/17 [History] Isosorbide Mononitrate [Imdur] 30 mg PO DAILY 01/17/18 [History] Escitalopram [Lexapro] 1 tab PO BEDTIME 02/25/18 [History] Polyethylene Glycol 3350 [MiraLAX] 1 pack PO ASDIRECTED 02/25/18 [History] busPIRone [Buspar] 1 tab PO DAILY 02/25/18 [History] Warfarin Sodium [Coumadin] 10 mg PO ASDIRECTED 11/08/18 [History] Past Medical History HEENT History: Reports: Hard of Hearing, Impaired Vision Cardiovascular History: Reports: Afib, CAD, Pacemaker, Stents Genitourinary History: Reports: Prostate Disorder, Other (See Below) Other Genitourinary History: Frequent nocturnal urination Neurological History: Reports: CVA, Other (See Below) Other Neuro History: 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 Endocrine/Metabolic History: Reports: Diabetes, Type II, Other (See Below) Other Endocrine/Metabolic History: 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 Hematologic History: Reports: Anticoagulation Therapy - Infectious Disease History Infectious Disease History: Reports: Chicken Pox, Measles, Mumps - Past Surgical History HEENT Surgical History: Reports: Cataract Surgery, Retinal Cardiovascular Surgical History: Reports: Cardiac Ablation GI Surgical History: Reports: Appendectomy, Bariatric Procedure, Colonoscopy Musculoskeletal Surgical History: Reports: Arthroscopic Knee Social & Family History - Family History Cardiac: Reports: CAD Oncologic: Reports: Uterine - Tobacco Use Smoking Status *Q: Never Smoker - Caffeine Use Caffeine Use: Reports: Coffee - Recreational Drug Use Recreational Drug Use: No H&P Review of Systems - Review of Systems: Review Of Systems: See Below General: Reports: Malaise, Weakness. Denies: Fever, Chills HEENT: Reports: No Symptoms Pulmonary: Reports: Shortness of Breath. Denies: Wheezing, Pleuritic Chest Pain , Cough, Sputum, Hemoptysis Cardiovascular: Reports: Dyspnea on Exertion, Lightheadedness, Syncope. Denies : Chest Pain, Palpitations, Orthopnea, PND, Edema Gastrointestinal: Reports: Diarrhea, Decreased Appetite, Melena. Denies: Abdominal Pain, Nausea, Vomiting Genitourinary: Reports: No Symptoms Musculoskeletal: Reports: No Symptoms Skin: Reports: No Symptoms Psychiatric: Reports: No Symptoms Neurological: Reports: No Symptoms Hematologic/Lymphatic: Reports: No Symptoms Immunologic: Reports: No Symptoms Exam - Exam Exam: See Below - Vital Signs Vital Signs: Last Vital Signs Temp 95.2 F L 11/08/18 06:47 Pulse 60 11/08/18 11:56 Resp 15 11/08/18 11:56 BP 70/41 L 11/08/18 11:56 Pulse Ox 97 11/08/18 11:56 Weight: 205 lb - Exam General: Alert, Oriented, Cooperative, Moderate Distress HEENT: Conjunctiva Clear, Hearing Intact, Normal Nasal Septum, Posterior Pharynx Clear, Pupils Equal. No: Mucosa Moist & [place] Neck: Supple, Trachea Midline, +2 Carotid Pulse wo Bruit Lungs: Clear to Auscultation, Normal Respiratory Effort Cardiovascular: Regular Rate, Regular Rhythm, Normal S1, Normal S2. No: Systolic Murmur, Diastolic Murmur GI/Abdominal Exam: Soft, Non-Tender, No Organomegaly, No Distention Back Exam: Normal Inspection, Full Range of Motion Extremities: Non-Tender, No Pedal Edema Skin: Warm, Dry, Intact Neurological: Cranial Nerves Intact, Strength Equal Bilateral, Normal Speech, Normal Tone, Sensation Intact. No: Focal Deficit Neuro Extensive - Mental Status: Alert, Oriented x3, Normal Mood/Affect, Normal Cognition, Memory Intact - Patient Data Lab Results Last 24 hrs: Laboratory Results - last 24 hr 11/08/18 11/08/18 11/08/18 Range/Units 07:20 07:20 07:20 WBC 8.4 (4.5-11.0) K/uL RBC 3.88 L (4.30-5.90) M/uL Hgb 11.3 L D (12.0-15.0) g/dL Hct 35.1 L (40.0-54.0) % MCV 91 (80-98) fL MCH 29 (27-31) pg MCHC 32 (32-36) % Plt Count 257 (150-400) K/uL Neut % (Auto) 75 H (36-66) % Lymph % (Auto) 18 L (24-44) % [place] % (Auto) 6 (2-6) % Eos % (Auto) 1 L (2-4) % Baso % (Auto) 0 (0-1) % PT 44.7 H (9.5-12.0) sec INR 4.42 H* D (0.80-1.20) Sodium 142 (140-148) mmol/L Potassium 4.1 (3.6-5.2) mmol/L Chloride 108 (100-108) mmol/L Carbon Dioxide 25 (21-32) mmol/L Anion Gap 8.7 (5.0-14.0) mmol/L BUN 45 H D (7-18) mg/dL Creatinine 0.9 (0.8-1.3) mg/dL Est Cr Clr Drug Dosing 65.28 mL/min Estimated GFR (MDRD) > 60 (>60) Glucose 149 H (74-106) mg/dL Lactic Acid (0.4-2.0) mmol/L Calcium 8.3 L (8.5-10.1) mg/dL Total Bilirubin 0.3 (0.2-1.0) mg/dL AST 21 (15-37) U/L ALT 41 (12-78) U/L Alkaline Phosphatase 44 L (46-116) U/L Troponin I (0.000-0.056) ng/mL Total Protein 5.6 L (6.4-8.2) g/dL Albumin 2.9 L (3.4-5.0) g/dL Globulin 2.7 (2.3-3.5) g/dL Albumin/Globulin Ratio 1.1 L (1.2-2.2) Urine Color Urine Appearance Urine pH (4.5-8.0) Ur Specific [place] (1.008-1.030) Urine Protein (NEGATIVE) mg/dL Urine Glucose (UA) (NEGATIVE) mg/dL Urine Ketones (NEGATIVE) mg/dL Urine Occult Blood (NEGATIVE) Urine Nitrite (NEGAITVE) Urine Bilirubin (NEGATIVE) Urine Urobilinogen (NORMAL) mg/dL Ur Leukocyte Esterase (NEGATIVE) Urine RBC (0-5) Urine WBC (0-5) Ur Epithelial Cells Amorphous Sediment Urine Bacteria Urine Mucus Blood Type Gel Antibody Screen Crossmatch 11/08/18 11/08/18 11/08/18 Range/Units 07:33 07:37 08:06 WBC (4.5-11.0) K/uL RBC (4.30-5.90) M/uL Hgb (12.0-15.0) g/dL Hct (40.0-54.0) % MCV (80-98) fL MCH (27-31) pg MCHC (32-36) % Plt Count (150-400) K/uL Neut % (Auto) (36-66) % Lymph % (Auto) (24-44) % [place] % (Auto) (2-6) % Eos % (Auto) (2-4) % Baso % (Auto) (0-1) % PT (9.5-12.0) sec INR (0.80-1.20) Sodium (140-148) mmol/L Potassium (3.6-5.2) mmol/L Chloride (100-108) mmol/L Carbon Dioxide (21-32) mmol/L Anion Gap (5.0-14.0) mmol/L BUN (7-18) mg/dL Creatinine (0.8-1.3) mg/dL Est Cr Clr Drug Dosing mL/min Estimated GFR (MDRD) (>60) Glucose (74-106) mg/dL Lactic Acid 1.8 (0.4-2.0) mmol/L Calcium (8.5-10.1) mg/dL Total Bilirubin (0.2-1.0) mg/dL AST (15-37) U/L ALT (12-78) U/L Alkaline Phosphatase (46-116) U/L Troponin I < 0.017 (0.000-0.056) ng/mL Total Protein (6.4-8.2) g/dL Albumin (3.4-5.0) g/dL Globulin (2.3-3.5) g/dL Albumin/Globulin Ratio (1.2-2.2) Urine Color Urine Appearance Urine pH (4.5-8.0) Ur Specific [place] (1.008-1.030) Urine Protein (NEGATIVE) mg/dL Urine Glucose (UA) (NEGATIVE) mg/dL Urine Ketones (NEGATIVE) mg/dL Urine Occult Blood (NEGATIVE) Urine Nitrite (NEGAITVE) Urine Bilirubin (NEGATIVE) Urine Urobilinogen (NORMAL) mg/dL Ur Leukocyte Esterase (NEGATIVE) Urine RBC (0-5) Urine WBC (0-5) Ur Epithelial Cells Amorphous Sediment Urine Bacteria Urine Mucus Blood Type A POSITIVE Gel Antibody Screen Negative Crossmatch See Detail 11/08/18 11/08/18 Range/Units 08:26 12:54 WBC (4.5-11.0) K/uL RBC (4.30-5.90) M/uL Hgb 10.0 L (12.0-15.0) g/dL Hct (40.0-54.0) % MCV (80-98) fL MCH (27-31) pg MCHC (32-36) % Plt Count (150-400) K/uL Neut % (Auto) (36-66) % Lymph % (Auto) (24-44) % [place] % (Auto) (2-6) % Eos % (Auto) (2-4) % Baso % (Auto) (0-1) % PT (9.5-12.0) sec INR (0.80-1.20) Sodium (140-148) mmol/L Potassium (3.6-5.2) mmol/L Chloride (100-108) mmol/L Carbon Dioxide (21-32) mmol/L Anion Gap (5.0-14.0) mmol/L BUN (7-18) mg/dL Creatinine (0.8-1.3) mg/dL Est Cr Clr Drug Dosing mL/min Estimated GFR (MDRD) (>60) Glucose (74-106) mg/dL Lactic Acid (0.4-2.0) mmol/L Calcium (8.5-10.1) mg/dL Total Bilirubin (0.2-1.0) mg/dL AST (15-37) U/L ALT (12-78) U/L Alkaline Phosphatase (46-116) U/L Troponin I (0.000-0.056) ng/mL Total Protein (6.4-8.2) g/dL Albumin (3.4-5.0) g/dL Globulin (2.3-3.5) g/dL Albumin/Globulin Ratio (1.2-2.2) Urine Color Yellow Urine Appearance Clear Urine pH 6.0 (4.5-8.0) Ur Specific [place] 1.015 (1.008-1.030) Urine Protein Negative (NEGATIVE) mg/dL Urine Glucose (UA) Normal (NEGATIVE) mg/dL Urine Ketones Negative (NEGATIVE) mg/dL Urine Occult Blood Negative (NEGATIVE) Urine Nitrite Negative (NEGAITVE) Urine Bilirubin Negative (NEGATIVE) Urine Urobilinogen Normal (NORMAL) mg/dL Ur Leukocyte Esterase Negative (NEGATIVE) Urine RBC Not seen (0-5) Urine WBC Not seen (0-5) Ur Epithelial Cells Not seen Amorphous Sediment Not seen Urine Bacteria Not seen Urine Mucus Not seen Blood Type Gel Antibody Screen Crossmatch Result Diagrams: 11/08/18 12:54 11/08/18 07:20 Jerome Results Last 24 hrs: Microbiology 11/08/18 07:47 Stool Occult Blood (JEROME) - Final Stool / Feces *Q Meaningful Use (ADM) - VTE *Q VTE Pharmacological Contraindications *Q: Active Hemorrhage - VTE Risk Assess *Q Each Risk Factor Represents 1 Point: Obesity ( BMI > 25 kg/m2) Total Score 1 Point Risk Factors: 1 Each Risk Factor Represents 2 Points: None Total Score 2 Point Risk Factors: 0 Each Risk Factor Represents 3 Points: Age 75 Years or Greater Total Score 3 Point Risk Factors: 3 Each Risk Factor Represents 5 Points: None Total Score 5 Point Risk Factors: 0 Venous Thromboembolism Risk Factor Score *Q: 4 Problem List Initiated/Reviewed/Updated: Yes Orders Last 24hrs: Active Orders 24 hr Category Date Time Status Patient Status Manage Transfer [TRANSFER] Routine ADT 11/08/18 12:58 Active EKG Documentation Completion [RC] ASDIRECTED Care 11/08/18 08:07 Active RED BLOOD CELLS LP [BBK] Stat Lab 11/08/18 07:33 Results TYPE AND SCREEN [BBK] Stat Lab 11/08/18 07:33 Results Sodium Chloride 0.9% [Normal Saline] 1,000 ml Med 11/08/18 07:15 Active IV ASDIRECTED Sodium Chloride 0.9% [Normal Saline] 1,000 ml Med 11/08/18 08:15 Active IV ASDIRECTED Resuscitation Status Routine Resus Stat 11/08/18 13:03 Ordered EKG 12 Lead [EK] Routine Ther 11/08/18 08:07 Ordered Medication Orders Sodium Chloride (Normal Saline) 1,000 mls @ 999 mls/hr IV ASDIRECTED [facility] Last Admin: 11/08/18 07:35 Dose: 999 mls/hr Sodium Chloride (Normal Saline) 1,000 mls @ 999 mls/hr IV ASDIRECTED [facility] Last Admin: 11/08/18 08:09 Dose: 999 mls/hr Assessment/Plan Comment:: ASSESSMENT AND PLAN UPPER GI BLEED-started just over 36 hours ago, since then has had melenic stool and weakness with lightheadedness. Experienced 2 brief syncopal episodes this morning. No previous history of GI bleed or significant ulcer disease -Admit to ICU -Serial hemoglobin levels -Maintained 2 IV sites -Type and cross to hold 4 units of red blood cells -2 units of fresh frozen IV now -Vigorous IV fluid replacement -Protonix 80 mg IV bolus followed by continuous infusion of Protonix -Consult Dr. Whiting for EGD and colonoscopy in a.m. TYPE 2 DIABETES MELLITUS -Continue outpatient medical regimen -Low-dose sliding scale Humalog -4 times a day glucometers CORONARY ARTERY DISEASE-currently asymptomatic -Continue outpatient medical therapy PAROXYSMAL ATRIAL FIBRILLATION -Hold and reverse anticoagulation with warfarin because of acute bleed -Continue other medications MAINTENANCE ISSUES -DVT prophylaxis; scuds, hold on use of anticoagulation because of acute bleed -GI prophylaxis; Protonix as above -Carson catheter; not indicated -Nutrition; nothing by mouth after midnight -Nicotine dependence; not required CODE STATUS-FULL CODE ADMISSION STATUS-patient will be admitted to inpatient status, expect at least a 2 night hospital stay for evaluation and management of problems as outlined above. At the time of this admission I do not reasonably expected evaluation and management of this problem will require more than a 96 hour hospital stay. DISPOSITION-anticipate discharge to home after the hospital stay. PRIMARY CARE PROVIDER-Horace Sheridan
[2018-11-08] MEDS ORDERED: Acetaminophen 325 MG Tab PO PRN (13:55)
[2018-11-08] MEDS ORDERED: 50% Dextrose in Water 50 ML Syringe IV PRN (13:55)
[2018-11-08] MEDS ORDERED: Glucose Gel 15 GM in 37.5 GM Tube PO PRN (13:55)
[2018-11-08] MEDS ORDERED: Sodium Chloride 0.9% 10 ML Syringe FLUSH PRN (13:55)
[2018-11-08] MEDS ORDERED: Ondansetron 4 MG/2 ML SDV IV PRN (13:55)
[2018-11-08] MEDS ORDERED: Albuterol 0.083% 2.5 MG/3 ML Neb Soln NEB PRN (13:55)
[2018-11-08] MEDS ORDERED: Pantoprazole 40 MG Vial IVPUSH ONE (14:15)
[2018-11-08] MEDS ORDERED: Bisacodyl 5 MG Tab PO ONE ×2 (14:30→20:00)
[2018-11-08] MEDS: Sodium Chloride 0.9% 100 ML with Pantoprazole 80 MG IV SCH ×4 (15:08→23:36)
[2018-11-08] MEDS: Sodium Chloride 0.9% 1,000 ML IV SCH ×2 (16:07→23:37)
[2018-11-08] MEDS: Insulin Lispro 100 Unit/ML 3 ML KwikPen SUBCUT SCH ×2 (16:41→20:51)
[2018-11-08] MEDS ORDERED: Polyethylene Glycol 3350 Powder 238 GM Bot PO ONE (17:00)
[2018-11-08] MEDS: Escitalopram 20 MG Tab PO SCH (20:51)
[2018-11-08] MEDS: Sotalol 80 MG Tab PO SCH (20:51)
[2018-11-09] MEDS: Insulin Lispro 100 Unit/ML 3 ML KwikPen SUBCUT SCH ×4 (07:31→21:22)
[2018-11-09] MEDS: Sodium Chloride 0.9% 1,000 ML IV SCH (07:43)
[2018-11-09] MEDS: Sodium Chloride 0.9% 100 ML with Pantoprazole 80 MG IV SCH ×4 (08:00→17:48)
[2018-11-09] MEDS: Sotalol 80 MG Tab PO SCH ×2 (08:00→21:02)
[2018-11-09] MEDS: Isosorbide Mononitrate 30 MG Tab.ER PO SCH (08:01)
[2018-11-09] MEDS ORDERED: Midazolam 1 MG/ML 2 ML SDV ONE (08:47)
[2018-11-09] MEDS ORDERED: fentaNYL 100 MCG/2 ML SDV ONE (08:47)
[2018-11-09] MEDS ORDERED: Propofol 200 MG/20 ML SDV ONE (08:48)
--- NOTE | 2018-11-09 10:17 | PCM.PN ---
- General Info Date of Service: 11/09/18 Subjective Update: Adarsh has been stable since yesterday morning with no further evidence of active bleeding. He is feeling improved today last weakness. EGD and colonoscopy performed by Dr. Whiting, showing no evidence of active bleeding or obvious source of recent blood loss. Functional Status: Reports: Tolerating Diet, Urinating - Review of Systems General: Reports: Weakness. Denies: Fever, Chills Pulmonary: Reports: No Symptoms Cardiovascular: Reports: No Symptoms Gastrointestinal: Reports: Melena. Denies: Abdominal Pain, Diarrhea, Difficulty Swallowing, Hematochezia, Nausea, Vomiting - Patient Data Vitals - Most Recent: Last Vital Signs Temp 96.7 F 11/09/18 08:00 Pulse 60 11/09/18 08:00 Resp 16 11/09/18 08:00 BP 113/67 11/09/18 08:01 Pulse Ox 98 11/09/18 08:00 Weight - Most Recent: 204 lb 15.773 oz I&O - Last 24 Hours: Intake & Output 11/08/18 11/09/18 11/09/18 22:59 06:59 14:59 Intake Total 2460 3165 Output Total 600 Balance 1860 3165 Lab Results Last 24 Hours: Laboratory Results - last 24 hr 11/08/18 11/08/18 11/08/18 Range/Units 07:33 12:54 15:07 WBC (4.5-11.0) K/uL RBC (4.30-5.90) M/uL Hgb 10.0 L 10.1 L (12.0-15.0) g/dL Hct (40.0-54.0) % MCV (80-98) fL MCH (27-31) pg MCHC (32-36) % Plt Count (150-400) K/uL Neut % (Auto) (36-66) % Lymph % (Auto) (24-44) % [place] % (Auto) (2-6) % Eos % (Auto) (2-4) % Baso % (Auto) (0-1) % PT (9.5-12.0) sec INR (0.80-1.20) Sodium (140-148) mmol/L Potassium (3.6-5.2) mmol/L Chloride (100-108) mmol/L Carbon Dioxide (21-32) mmol/L Anion Gap (5.0-14.0) mmol/L BUN (7-18) mg/dL Creatinine (0.8-1.3) mg/dL Est Cr Clr Drug Dosing mL/min Estimated GFR (MDRD) (>60) Glucose (74-106) mg/dL Calcium (8.5-10.1) mg/dL Magnesium (1.8-2.4) mg/dL Blood Type A POSITIVE Gel Antibody Screen Negative Crossmatch See Detail 11/08/18 11/08/18 11/09/18 Range/Units 19:08 23:55 05:40 WBC (4.5-11.0) K/uL RBC (4.30-5.90) M/uL Hgb 9.0 L 9.2 L (12.0-15.0) g/dL Hct (40.0-54.0) % MCV (80-98) fL MCH (27-31) pg MCHC (32-36) % Plt Count (150-400) K/uL Neut % (Auto) (36-66) % Lymph % (Auto) (24-44) % [place] % (Auto) (2-6) % Eos % (Auto) (2-4) % Baso % (Auto) (0-1) % PT 14.0 H (9.5-12.0) sec INR 1.29 H D (0.80-1.20) Sodium (140-148) mmol/L Potassium (3.6-5.2) mmol/L Chloride (100-108) mmol/L Carbon Dioxide (21-32) mmol/L Anion Gap (5.0-14.0) mmol/L BUN (7-18) mg/dL Creatinine (0.8-1.3) mg/dL Est Cr Clr Drug Dosing mL/min Estimated GFR (MDRD) (>60) Glucose (74-106) mg/dL Calcium (8.5-10.1) mg/dL Magnesium (1.8-2.4) mg/dL Blood Type Gel Antibody Screen Crossmatch 11/09/18 11/09/18 Range/Units 05:40 05:40 WBC 9.7 (4.5-11.0) K/uL RBC 3.01 L (4.30-5.90) M/uL Hgb 8.9 L (12.0-15.0) g/dL Hct 27.6 L (40.0-54.0) % MCV 92 (80-98) fL MCH 30 (27-31) pg MCHC 32 (32-36) % Plt Count 219 (150-400) K/uL Neut % (Auto) 70 H (36-66) % Lymph % (Auto) 24 (24-44) % [place] % (Auto) 6 (2-6) % Eos % (Auto) 1 L (2-4) % Baso % (Auto) 0 (0-1) % PT (9.5-12.0) sec INR (0.80-1.20) Sodium 143 (140-148) mmol/L Potassium 4.0 (3.6-5.2) mmol/L Chloride 112 H (100-108) mmol/L Carbon Dioxide 26 (21-32) mmol/L Anion Gap 9.0 (5.0-14.0) mmol/L BUN 24 H (7-18) mg/dL Creatinine 0.8 (0.8-1.3) mg/dL Est Cr Clr Drug Dosing 73.26 mL/min Estimated GFR (MDRD) > 60 (>60) Glucose 92 (74-106) mg/dL Calcium 8.2 L (8.5-10.1) mg/dL Magnesium 1.9 (1.8-2.4) mg/dL Blood Type Gel Antibody Screen Crossmatch Jerome Results Last 24 Hours: Microbiology 11/08/18 07:47 Stool Occult Blood (JEROME) - Final Stool / Feces Med Orders - Current: Current Medications Acetaminophen (Tylenol) 650 mg PO Q4H PRN PRN Reason: Pain (Mild 1-3)/fever Albuterol (Proventil Neb Soln) 2.5 mg NEB Q4H PRN PRN Reason: Shortness Of Breath/wheezing Aspirin (Halfprin) 81 mg PO DAILY [facility] Buspirone HCl (Buspar) 10 mg PO DAILY [facility] Dextrose (Glutose 15) 15 gm PO ONETIME PRN PRN Reason: Hypoglycemia Dextrose/Water (Dextrose 50% In Water) 50 ml IV ONETIME PRN PRN Reason: Hypoglycemia Escitalopram Oxalate (Lexapro) 20 mg PO BEDTIME [facility] Last Admin: 11/08/18 20:51 Dose: 20 mg Pantoprazole Sodium 80 mg/ (Sodium Chloride) 100 mls @ 10 mls/hr IV .Q10H [facility] Last Admin: 11/09/18 08:00 Dose: 10 mls/hr Insulin Human Lispro (Humalog) 0 unit SUBCUT QIDACANDBED [facility]; Protocol Last Admin: 11/09/18 07:31 Dose: Not Given Isosorbide Mononitrate (Imdur) 30 mg PO DAILY [facility] Last Admin: 11/09/18 08:01 Dose: 30 mg Liraglutide (Victoza) 0.6 mg SUBCUT DAILY [facility] Ondansetron HCl (Zofran) 4 mg IV Q4H PRN PRN Reason: Nausea/Vomiting Sodium Chloride (Saline Flush) 10 ml FLUSH ASDIRECTED PRN PRN Reason: Keep Vein Open Sotalol HCl (Betapace) 40 mg PO BID [facility] Last Admin: 11/09/18 08:00 Dose: 40 mg Discontinued Medications Bisacodyl (Dulcolax) 10 mg PO ONETIME ONE Stop: 11/08/18 14:31 Last Admin: 11/08/18 15:00 Dose: 10 mg Bisacodyl (Dulcolax) 10 mg PO ONETIME ONE Stop: 11/08/18 20:01 Last Admin: 11/08/18 19:56 Dose: 10 mg Fentanyl (Sublimaze) Confirm Administered Dose 100 mcg .ROUTE .STK-MED ONE Stop: 11/09/18 08:48 Sodium Chloride (Normal Saline) 1,000 mls @ 999 mls/hr IV ASDIRECTED [facility] Last Admin: 11/08/18 07:35 Dose: 999 mls/hr Sodium Chloride (Normal Saline) 1,000 mls @ 999 mls/hr IV ASDIRECTED [facility] Last Admin: 11/08/18 08:09 Dose: 999 mls/hr Phytonadione 3 mg/ Sodium (Chloride) 50.3 mls @ 100 mls/hr IV ONETIME ONE Stop: 11/08/18 09:00 Last Admin: 11/08/18 08:32 Dose: 100 mls/hr Pantoprazole Sodium 80 mg/ (Sodium Chloride) 100 mls @ 10 mls/hr IV .Q10H [facility] Last Admin: 11/08/18 23:36 Dose: 10 mls/hr Sodium Chloride (Normal Saline) 1,000 mls @ 500 mls/hr IV ASDIRECTED [facility] Stop: 11/08/18 16:01 Last Admin: 11/08/18 14:00 Dose: 500 mls/hr Sodium Chloride (Normal Saline) 1,000 mls @ 125 mls/hr IV ASDIRECTED [facility] Last Admin: 11/09/18 07:43 Dose: 125 mls/hr Midazolam HCl (Versed 1 Mg/Ml) Confirm Administered Dose 2 mg .ROUTE .STK-MED ONE Stop: 11/09/18 08:48 Pantoprazole Sodium (Protonix Iv) 80 mg IVPUSH ONETIME ONE Stop: 11/08/18 14:16 Last Admin: 11/08/18 14:50 Dose: 80 mg Polyethylene Glycol (Miralax) 238 gm PO ONETIME ONE Stop: 11/08/18 17:01 Last Admin: 11/08/18 17:28 Dose: 238 gm Propofol (Diprivan 20 Ml) Confirm Administered Dose 200 mg .ROUTE .STK-MED ONE Stop: 11/09/18 08:49 Warfarin Sodium (Coumadin) 7.5 mg PO DAILY@1300 [facility] - Exam Quality Assessment: DVT Prophylaxis General: Alert, Oriented, Cooperative, No Acute Distress Lungs: Clear to Auscultation, Normal Respiratory Effort Cardiovascular: Regular Rate, Regular Rhythm, No Murmurs GI/Abdominal Exam: Soft, Non-Tender, No Organomegaly, No Distention Extremities: Normal Inspection, Normal Range of Motion, Non-Tender, No Pedal Edema - Problem List Review Problem List Initiated/Reviewed/Updated: Yes - My Orders Last 24 Hours: My Active Orders 11/08/18 13:03 Resuscitation Status Routine 11/08/18 13:41 Transfuse Fresh Frozen Plasma [COMM] Stat 11/08/18 13:55 Patient Status [ADT] Routine Ambulate [RC] QID Blood Glucose Check, Bedside [RC] QIDACANDBED Cardiac Monitoring [RC] Q6H Communication Order [RC] STAT Diabetes Education [RC] Click to Edit Height and Weight [RC] DAILY Intake and Output [RC] QSHIFT Notify Provider Consults [RC] ASDIRECTED Notify Provider Vital Signs [RC] ASDIRECTED Notify Provider [RC] PRN Oxygen Therapy [RC] PRN Peripheral IV Care [RC] Q12H RT Aerosol Therapy [RC] ASDIRECTED Up With Assistance [RC] ASDIRECTED Up to Chair [RC] QID Verify Patient Consent Obtain [RC] ASDIRECTED Vital Signs [RC] Q2H Consult to Physician [CONS] Routine Acetaminophen [Tylenol] 650 mg PO Q4H PRN Albuterol [Proventil Neb Soln] 2.5 mg NEB Q4H PRN Dextrose 50% in Water 50 ml IV ONETIME PRN Dextrose [Glutose 15] 15 gm PO ONETIME PRN Ondansetron [Zofran] 4 mg IV Q4H PRN Sodium Chloride 0.9% [Saline Flush] 10 ml FLUSH ASDIRECTED PRN Peripheral IV Insertion Adult [OM.PC] Routine Schedule Procedure [COMM] Routine VTE Pharmacological Contraindications [AST] Per Unit Routine 11/08/18 17:00 Insulin Lispro [HumaLOG] See Protocol SUBCUT QIDACANDBED 11/08/18 21:00 Escitalopram [Lexapro] 20 mg PO BEDTIME Sotalol [Betapace] 40 mg PO BID 11/09/18 08:00 Sodium Chloride 0.9% [Normal Saline] 100 ml Pantoprazole [ProTONIX IV] 80 mg IV 10 mls/hr 11/09/18 09:00 Aspirin [Halfprin] 81 mg PO DAILY Isosorbide Mononitrate [Imdur] 30 mg PO DAILY Liraglutide [Victoza] 0.6 mg SUBCUT DAILY busPIRone [Buspar] 10 mg PO DAILY 11/09/18 10:11 Convert IV to Saline Lock [OM.PC] Routine 11/09/18 13:00 HGB [HEMOGLOBIN] [HEME] Stat 11/09/18 21:00 HGB [HEMOGLOBIN] [HEME] Stat 11/09/18 Breakfast Full Liquid Diet [DIET] 11/10/18 05:00 INR,PT,PROTHROMBIN TIME [COAG] Timed 11/10/18 05:11 HGB [HEMOGLOBIN] [HEME] AM 11/10/18 07:30 GLUCOSE POC LAB TO COLLECT [POC] QIDACANDBED 11/10/18 11:30 GLUCOSE POC LAB TO COLLECT [POC] QIDACANDBED 11/10/18 16:30 GLUCOSE POC LAB TO COLLECT [POC] QIDACANDBED 11/10/18 21:00 GLUCOSE POC LAB TO COLLECT [POC] QIDACANDBED 11/11/18 07:30 GLUCOSE POC LAB TO COLLECT [POC] QIDACANDBED 11/11/18 11:30 GLUCOSE POC LAB TO COLLECT [POC] QIDACANDBED 11/11/18 16:30 GLUCOSE POC LAB TO COLLECT [POC] QIDACANDBED 11/11/18 21:00 GLUCOSE POC LAB TO COLLECT [POC] QIDACANDBED 11/12/18 07:30 GLUCOSE POC LAB TO COLLECT [POC] QIDACANDBED 11/12/18 11:30 GLUCOSE POC LAB TO COLLECT [POC] QIDACANDBED 11/12/18 16:30 GLUCOSE POC LAB TO COLLECT [POC] QIDACANDBED 11/12/18 21:00 GLUCOSE POC LAB TO COLLECT [POC] QIDACANDBED 11/13/18 07:30 GLUCOSE POC LAB TO COLLECT [POC] QIDACANDBED 11/13/18 11:30 GLUCOSE POC LAB TO COLLECT [POC] QIDACANDBED - Plan Plan:: ASSESSMENT AND PLAN UPPER GI BLEED-he has stabilized since admission with no further evidence of active bleeding. EGD performed with colonoscopy this morning by Dr. Whiting and showed no obvious source of blood loss or active bleeding. 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 Whiting -Full liquid diet TYPE 2 DIABETES MELLITUS -Continue outpatient medical regimen -Low-dose sliding scale Humalog -4 times a day glucometers CORONARY ARTERY DISEASE-currently asymptomatic -Continue outpatient medical therapy PAROXYSMAL ATRIAL FIBRILLATION-INR close to normal range this morning -Hold and reverse anticoagulation with warfarin because of acute bleed -Continue other medications MAINTENANCE ISSUES -DVT prophylaxis; scuds, hold on use of anticoagulation because of acute bleed -GI prophylaxis; Protonix as above -Carson catheter; not indicated -Nutrition; full liquid diet -Nicotine dependence; not required CODE STATUS-FULL CODE ADMISSION STATUS-patient will be admitted to inpatient status, expect at least a 2 night hospital stay for evaluation and management of problems as outlined above. At the time of this admission I do not reasonably expected evaluation and management of this problem will require more than a 96 hour hospital stay. DISPOSITION-anticipate discharge to home after the hospital stay. PRIMARY CARE PROVIDER-Horace Sheridan
[2018-11-09] MEDS: Liraglutide (rDNA Origin) 0.6 MG/0.1 ML 3 ML Pen SUBCUT SCH (10:33)
[2018-11-09] MEDS: Aspirin 81 MG Tab.EC PO SCH (11:26)
[2018-11-09] MEDS: busPIRone 10 MG Tab PO SCH (11:26)
[2018-11-09] MEDS ORDERED: Warfarin 2.5 MG Tab PO SCH (13:00)
[2018-11-09] MEDS: Escitalopram 20 MG Tab PO SCH (21:02)
[2018-11-10] MEDS: Sodium Chloride 0.9% 100 ML with Pantoprazole 80 MG IV SCH ×2 (03:24)
--- NOTE | 2018-11-10 07:36 | OR ---
DATE OF PROCEDURE: 11/09/2018 SURGEON: Mehdi Whiting MD PROCEDURES: EGD and colonoscopy. FINDINGS: 1. No evidence of old or new blood. 2. Diverticulosis without evidence of diverticulitis or bleeding. 3. Malu-en-Y without evidence of ulceration or abnormality. PREOPERATIVE DIAGNOSIS: Gastrointestinal bleeding. POSTOPERATIVE DIAGNOSIS: Gastrointestinal bleeding. RISKS: Risks, benefits, alternatives, and limitations including, but not limited to, infection, bleeding, and perforation were explained to the patient, and he wished to proceed. PROCEDURE IN DETAIL: The patient was placed in left lateral decubitus position. The EGD scope was introduced and advanced atraumatically into the Malu-en-Y limb. There was no old or new blood. There was no ulceration. No narrowing or stricturing. The esophagus was normal. Digital rectal exam performed, which showed small external hemorrhoids. The scope was introduced and advanced atraumatically to the ileocecal valve. A photo was taken. The scope was brought back through the ascending, transverse, descending colon, and retroflexed. No evidence of old or new blood. No masses. Diverticulosis was described as mild-to- moderate and limited to sigmoid colon. No abnormalities on retroflexed. Most likely etiology of the bleeding would be diverticulosis. However, this could not be formally identified, as there was no bleeding at this time. Mehdi Whiting MD /[id number]
[2018-11-10] MEDS: Insulin Lispro 100 Unit/ML 3 ML KwikPen SUBCUT SCH ×4 (08:55→21:15)
[2018-11-10] MEDS: Aspirin 81 MG Tab.EC PO SCH (08:57)
[2018-11-10] MEDS: Isosorbide Mononitrate 30 MG Tab.ER PO SCH (08:57)
[2018-11-10] MEDS: Sotalol 80 MG Tab PO SCH ×2 (08:57→21:15)
[2018-11-10] MEDS: busPIRone 10 MG Tab PO SCH (08:57)
--- NOTE | 2018-11-10 10:06 | PCM.PN ---
- General Info Date of Service: 11/10/18 Subjective Update: There were no acute events overnight. Patient has not had any abdominal pain, melena or hematochezia. Hemoglobin has been stable. Vital signs have been stable. Appetite is increasing. No fevers. Functional Status: Reports: Pain Controlled, Tolerating Diet - Review of Systems General: Denies: Fever Gastrointestinal: Denies: Abdominal Pain, Hematochezia, Melena - Patient Data Vitals - Most Recent: Last Vital Signs Temp 35.8 C 11/10/18 07:45 Pulse 60 11/10/18 08:57 Resp 12 11/10/18 07:45 BP 144/81 H 11/10/18 08:57 Pulse Ox 100 11/10/18 07:45 Weight - Most Recent: 92.98 kg I&O - Last 24 Hours: Intake & Output 11/09/18 11/10/18 11/10/18 22:59 06:59 14:59 Intake Total 863 358 900 Output Total 700 1250 600 Balance 163 -892 300 Lab Results Last 24 Hours: Laboratory Results - last 24 hr 11/09/18 11/09/18 11/10/18 Range/Units 13:00 20:57 05:51 Hgb 8.5 L 8.3 L (12.0-15.0) g/dL PT 11.9 (9.5-12.0) sec INR 1.09 (0.80-1.20) 11/10/18 Range/Units 05:51 Hgb 8.7 L (12.0-15.0) g/dL PT (9.5-12.0) sec INR (0.80-1.20) Med Orders - Current: Current Medications Acetaminophen (Tylenol) 650 mg PO Q4H PRN PRN Reason: Pain (Mild 1-3)/fever Albuterol (Proventil Neb Soln) 2.5 mg NEB Q4H PRN PRN Reason: Shortness Of Breath/wheezing Aspirin (Halfprin) 81 mg PO DAILY [facility] Last Admin: 11/10/18 08:57 Dose: 81 mg Buspirone HCl (Buspar) 10 mg PO DAILY [facility] Last Admin: 11/10/18 08:57 Dose: 10 mg Dextrose (Glutose 15) 15 gm PO ONETIME PRN PRN Reason: Hypoglycemia Dextrose/Water (Dextrose 50% In Water) 50 ml IV ONETIME PRN PRN Reason: Hypoglycemia Escitalopram Oxalate (Lexapro) 20 mg PO BEDTIME [facility] Last Admin: 11/09/18 21:02 Dose: 20 mg Pantoprazole Sodium 80 mg/ (Sodium Chloride) 100 mls @ 10 mls/hr IV .Q10H [facility] Last Admin: 11/10/18 03:24 Dose: 10 mls/hr Insulin Human Lispro (Humalog) 0 unit SUBCUT QIDACANDBED [facility]; Protocol Last Admin: 11/10/18 08:55 Dose: Not Given Isosorbide Mononitrate (Imdur) 30 mg PO DAILY [facility] Last Admin: 11/10/18 08:57 Dose: 30 mg Liraglutide (Victoza) 0.6 mg SUBCUT DAILY [facility] Last Admin: 11/09/18 10:33 Dose: Not Given Ondansetron HCl (Zofran) 4 mg IV Q4H PRN PRN Reason: Nausea/Vomiting Sodium Chloride (Saline Flush) 10 ml FLUSH ASDIRECTED PRN PRN Reason: Keep Vein Open Sotalol HCl (Betapace) 40 mg PO BID [facility] Last Admin: 11/10/18 08:57 Dose: 40 mg Discontinued Medications Bisacodyl (Dulcolax) 10 mg PO ONETIME ONE Stop: 11/08/18 14:31 Last Admin: 11/08/18 15:00 Dose: 10 mg Bisacodyl (Dulcolax) 10 mg PO ONETIME ONE Stop: 11/08/18 20:01 Last Admin: 11/08/18 19:56 Dose: 10 mg Fentanyl (Sublimaze) Confirm Administered Dose 100 mcg .ROUTE .STK-MED ONE Stop: 11/09/18 08:48 Sodium Chloride (Normal Saline) 1,000 mls @ 999 mls/hr IV ASDIRECTED [facility] Last Admin: 11/08/18 07:35 Dose: 999 mls/hr Sodium Chloride (Normal Saline) 1,000 mls @ 999 mls/hr IV ASDIRECTED [facility] Last Admin: 11/08/18 08:09 Dose: 999 mls/hr Phytonadione 3 mg/ Sodium (Chloride) 50.3 mls @ 100 mls/hr IV ONETIME ONE Stop: 11/08/18 09:00 Last Admin: 11/08/18 08:32 Dose: 100 mls/hr Pantoprazole Sodium 80 mg/ (Sodium Chloride) 100 mls @ 10 mls/hr IV .Q10H [facility] Last Admin: 11/08/18 23:36 Dose: 10 mls/hr Sodium Chloride (Normal Saline) 1,000 mls @ 500 mls/hr IV ASDIRECTED [facility] Stop: 11/08/18 16:01 Last Admin: 11/08/18 14:00 Dose: 500 mls/hr Sodium Chloride (Normal Saline) 1,000 mls @ 125 mls/hr IV ASDIRECTED [facility] Last Admin: 11/09/18 07:43 Dose: 125 mls/hr Midazolam HCl (Versed 1 Mg/Ml) Confirm Administered Dose 2 mg .ROUTE .STK-MED ONE Stop: 11/09/18 08:48 Pantoprazole Sodium (Protonix Iv) 80 mg IVPUSH ONETIME ONE Stop: 11/08/18 14:16 Last Admin: 11/08/18 14:50 Dose: 80 mg Polyethylene Glycol (Miralax) 238 gm PO ONETIME ONE Stop: 11/08/18 17:01 Last Admin: 11/08/18 17:28 Dose: 238 gm Propofol (Diprivan 20 Ml) Confirm Administered Dose 200 mg .ROUTE .STK-MED ONE Stop: 11/09/18 08:49 Warfarin Sodium (Coumadin) 7.5 mg PO DAILY@1300 [facility] - Exam Quality Assessment: No: Supplemental Oxygen General: Alert, Oriented, Cooperative, No Acute Distress Lungs: Normal Respiratory Effort Cardiovascular: Regular Rate, Regular Rhythm GI/Abdominal Exam: Soft, No Distention Extremities: No Pedal Edema Psy/Mental Status: Alert, Normal Affect - Problem List Review Problem List Initiated/Reviewed/Updated: Yes - My Orders Last 24 Hours: My Active Orders 11/10/18 10:04 Transfer Patient (Change bed) [ADT] Routine 11/10/18 16:30 Pantoprazole [ProTONIX] 40 mg PO BIDAC 11/10/18 Lunch Consistent Carbohydrate Diet [DIET] 11/11/18 05:00 BASIC METABOLIC PANEL,BMP [CHEM] Timed CBC W/O DIFF,HEMOGRAM [HEME] Timed (1) - Plan Plan:: ASSESSMENT AND PLAN ACUTE UPPER GI HEMORRHAGE- hemoglobin stable with no evidence for active bleeding. Suspect remnant stomach as the source of bleeding. He has been stable following fresh frozen plasma transfusion and pantoprazole infusion. -Repeat hemoglobin in the morning -Maintained 2 IV sites -Type and cross to hold 4 units of red blood cells -Transition to oral pantoprazole -Regular diet TYPE 2 DIABETES MELLITUS - blood sugars acceptable. -Continue outpatient medical regimen -Low-dose sliding scale Humalog -4 times a day glucometers CORONARY ARTERY DISEASE - currently asymptomatic -Continue outpatient medical therapy PAROXYSMAL ATRIAL FIBRILLATION - INR normal this morning. Rate control acceptable. -Hold anticoagulation with warfarin because of acute bleed (2 weeks) -Continue other medications MAINTENANCE ISSUES -DVT prophylaxis; scuds, hold on use of anticoagulation because of acute bleed -GI prophylaxis; Protonix as above -Carson catheter; not indicated -Nutrition; full liquid diet DISPOSITION - anticipate discharge to home after the hospital stay. Jorge Shaw M.D.
[2018-11-10] MEDS: Liraglutide (rDNA Origin) 0.6 MG/0.1 ML 3 ML Pen SUBCUT SCH (10:32)
[2018-11-10] MEDS: Pantoprazole 40 MG Tab.CR PO SCH (15:45)
[2018-11-10] MEDS: Escitalopram 20 MG Tab PO SCH (21:17)
[2018-11-11] MEDS: Pantoprazole 40 MG Tab.CR PO SCH (08:25)
[2018-11-11] MEDS: Insulin Lispro 100 Unit/ML 3 ML KwikPen SUBCUT SCH (08:50)
[2018-11-11] MEDS: busPIRone 10 MG Tab PO SCH (08:51)
[2018-11-11] MEDS: Sotalol 80 MG Tab PO SCH (08:51)
[2018-11-11] MEDS: Isosorbide Mononitrate 30 MG Tab.ER PO SCH (08:52)
[2018-11-11] MEDS: Aspirin 81 MG Tab.EC PO SCH (08:53)
[2018-11-11 08:55] VITALS: BP 143/54
--- NOTE | 2018-11-11 10:43 | PCM.DCSUM1 ---
Discharge Summary - Hospital Course Brief History: 78-year-old male with history of gastric bypass who presented with weakness and melena. He was admitted for management of presumed upper gastrointestinal hemorrhage. Diagnosis: Stroke: No - Discharge Data Discharge Date: 11/11/18 Discharge Disposition: Home, Self-Care 01 Condition: Fair - Discharge Diagnosis/Problem(s) (1) Acute upper gastrointestinal hemorrhage SNOMED Code(s): 28210779 ICD Code: K92.2 - GASTROINTESTINAL HEMORRHAGE, UNSPECIFIED Status: Acute (2) Anemia due to acute blood loss SNOMED Code(s): 276095998 ICD Code: D62 - ACUTE POSTHEMORRHAGIC ANEMIA Status: Acute (3) Atrial fibrillation SNOMED Code(s): 80789002 ICD Code: I48.91 - UNSPECIFIED ATRIAL FIBRILLATION Status: Chronic Qualifiers: Atrial fibrillation type: paroxysmal Qualified Code(s): I48.0 - Paroxysmal atrial fibrillation - Patient Summary/Data Consults: Consultations 11/08/18 13:55 Consult to Physician [CONS] Routine Consulting Provider: Mehdi Whiting Call Completed to Consulting Physician: Yes Reason for Consult: GI bleed, EGD and colonoscopy in a. Hospital Course: Adarsh presented to the emergency room with weakness, lightheadedness, shortness of breath and an episode of syncope. He had had black and tarry stools over the 36 hours prior to presentation. Workup in the emergency room revealed a hemoglobin of 11.3 but there was concern for an acute upper GI hemorrhage. He is admitted to the intensive care unit and had 4 units of blood prepared in case he needed transfusion. In the emergency room he did receive vitamin K as well as 2 units of fresh frozen plasma. He received IV fluids and a pantoprazole infusion overnight. He did have a bowel prep the afternoon of admission. The morning after admission his hemoglobin has trended down to between 8 and 9. He did have an EGD and colonoscopy the morning after admission which were unremarkable. 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 His bleeding seemed to have stopped at this point but he was continued on the pantoprazole infusion and additional 24 hours. His hemoglobin has remained stable around 8.5. There is no evidence for recurrent bleeding. The patient has felt well. There has been no recurrence of syncope and no reports of shortness of breath. The day before discharge his diet was advanced with no difficulties. His hemoglobin has remained stable. His vital signs have all been stable. He has been transitioned to an oral proton pump inhibitor. He has tolerated his diet well. He has been up and moving around without any difficulties. I believe he is safe for discharge to home at this time. He did not ever require blood transfusion. His INR is normal. I've elected to hold his warfarin for approximately the next 2 weeks. He will be restarting his warfarin once his stomach has had a chance to heal with either ulceration or gastritis suspected as the bleeding source. His INR was mildly supratherapeutic at the time of presentation. He will be following up with primary care next week and the Coumadin clinic the week after that. - Patient Instructions Diet: Regular Diet as Tolerated Activity: As Tolerated Showering/Bathing: May Shower Notify Provider of: Fever, Increased Pain, Nausea and/or Vomiting Other/Special Instructions: 1. You were in the hospital for management of an acute upper gastrointestinal hemorrhage with anemia due to blood loss. I suspect that you have either an ulcer or gastritis in your remnant stomach. The bleeding seems to have stopped at this time. To help with additional healing I recommend that you take pantoprazole (Protonix) 40 mg twice daily for the next month and then once daily for 2 months. This acid blocking medication will help allow the area that was bleeding to heal up more effectively. You should not take your warfarin for the next week and a half. You may restart your warfarin on November 21 and then you will need a follow-up in the Coumadin clinic early the next week. 2. Please continue your other home medications as previously prescribed. 3. Seek medical attention if you have fever greater than 101, if you vomit up blood or if you have bloody stools or black tarry stools. - Discharge Plan *PRESCRIPTION DRUG MONITORING PROGRAM REVIEWED*: Not Applicable *COPY OF PRESCRIPTION DRUG MONITORING REPORT IN PATIENT EFFIE: Not Applicable Prescriptions/Med Rec: Pantoprazole Sodium 40 mg PO BIDAC #60 tablet. Home Medications: Home Meds Acarbose [Precose] 50 mg PO TID 09/08/13 [History] Calcium Carb & Citrate/Vit D3 [Calcium + Vitamin D3 Caplet] 1 each PO DAILY [History] Cholecalciferol (Vitamin D3) [Vitamin D3] 5,000 units PO DAILY 09/08/13 [History ] Cyanocobalamin (Vitamin B-12) [Vitamin B-12] 1,000 mcg PO DAILY 09/08/13 [ History] Losartan/Hydrochlorothiazide [Hyzaar 100-12.5 Tablet] 1 each PO DAILY 09/08/13 [ History] Multivitamin [Multi-Vitamin Daily] 1 tab PO BID 09/08/13 [History] Vitamin B Complex 1 each PO DAILY 09/08/13 [History] Sotalol HCl [Sotalol] 40 mg PO BID 06/20/15 [History] Warfarin [Coumadin] 7.5 mg PO DAILY 06/20/15 [History] Aspirin [Lo-Dose Aspirin EC] 81 mg PO DAILY 09/18/17 [History] Liraglutide [Victoza] 0.6 mg SQ DAILY 09/18/17 [History] Nitroglycerin [Nitrostat] 0.4 mg SL ASDIRECTED 09/18/17 [History] Isosorbide Mononitrate [Imdur] 30 mg PO DAILY 01/17/18 [History] Escitalopram [Lexapro] 1 tab PO BEDTIME 02/25/18 [History] Polyethylene Glycol 3350 [MiraLAX] 1 pack PO ASDIRECTED 02/25/18 [History] busPIRone [Buspar] 1 tab PO DAILY 02/25/18 [History] Warfarin Sodium [Coumadin] 10 mg PO ASDIRECTED 11/08/18 [History] Pantoprazole Sodium 40 mg PO BIDAC #60 tablet. 11/11/18 [Rx] Oxygen Therapy Mode: Room Air Patient Handouts: Gastrointestinal Bleeding, Pantoprazole tablets Referrals: Horace Sheridan PA [Primary Care Provider] - (1 week - follow-up hospital stay for GI bleed. Please have hemoglobin rechecked at the time of the visit) - Discharge Summary/Plan Comment DC Time >30 min.: No - Patient Data Vitals - Most Recent: Last Vital Signs Temp 35.8 C 11/11/18 08:00 Pulse 62 11/11/18 08:51 Resp 18 11/11/18 08:00 BP 143/54 H 11/11/18 08:52 Pulse Ox 97 11/11/18 08:00 Weight - Most Recent: 92.98 kg I&O - Last 24 hours: Intake & Output 0611/11/18 11/11/18 22:59 06:59 14:59 Intake Total 240 100 Output Total 1100 Balance 240 -1000 Lab Results - Last 24 hrs: Laboratory Results - last 24 hr 11/08/18 11/11/18 11/11/18 Range/Units 07:33 05:00 05:00 WBC 6.3 (4.5-11.0) K/uL RBC 2.91 L (4.30-5.90) M/uL Hgb 8.5 L (12.0-15.0) g/dL Hct 26.7 L (40.0-54.0) % MCV 92 (80-98) fL MCH 29 (27-31) pg MCHC 32 (32-36) % Plt Count 218 (150-400) K/uL Sodium 145 (140-148) mmol/L Potassium 3.8 (3.6-5.2) mmol/L Chloride 110 H (100-108) mmol/L Carbon Dioxide 29 (21-32) mmol/L Anion Gap 9.8 (5.0-14.0) mmol/L BUN 12 (7-18) mg/dL Creatinine 0.8 (0.8-1.3) mg/dL Est Cr Clr Drug Dosing 73.26 mL/min Estimated GFR (MDRD) > 60 (>60) Glucose 92 (74-106) mg/dL Calcium 8.4 L (8.5-10.1) mg/dL Crossmatch See Detail Med Orders - Current: Current Medications Acetaminophen (Tylenol) 650 mg PO Q4H PRN PRN Reason: Pain (Mild 1-3)/fever Albuterol (Proventil Neb Soln) 2.5 mg NEB Q4H PRN PRN Reason: Shortness Of Breath/wheezing Aspirin (Halfprin) 81 mg PO DAILY [facility] Last Admin: 11/11/18 08:53 Dose: 81 mg Buspirone HCl (Buspar) 10 mg PO DAILY [facility] Last Admin: 11/11/18 08:51 Dose: 10 mg Dextrose (Glutose 15) 15 gm PO ONETIME PRN PRN Reason: Hypoglycemia Dextrose/Water (Dextrose 50% In Water) 50 ml IV ONETIME PRN PRN Reason: Hypoglycemia Escitalopram Oxalate (Lexapro) 20 mg PO BEDTIME [facility] Last Admin: 06/17/19 21:17 Dose: 20 mg Insulin Human Lispro (Humalog) 0 unit SUBCUT QIDACANDBED [facility]; Protocol Last Admin: 11/11/18 08:50 Dose: Not Given Isosorbide Mononitrate (Imdur) 30 mg PO DAILY [facility] Last Admin: 11/11/18 08:52 Dose: 30 mg Liraglutide (Victoza) 0.6 mg SUBCUT DAILY [facility] Last Admin: 11/10/18 10:32 Dose: 0.6 mg Ondansetron HCl (Zofran) 4 mg IV Q4H PRN PRN Reason: Nausea/Vomiting [facility] Admin: 11/11/18 08:25 Dose: 40 mg Sodium Chloride (Saline Flush) 10 ml FLUSH ASDIRECTED PRN PRN Reason: Keep Vein Open Sotalol HCl (Betapace) 40 mg PO BID [facility] Last Admin: 11/11/18 08:51 Dose: 40 mg Discontinued Medications Bisacodyl (Dulcolax) 10 mg PO ONETIME ONE Stop: 11/08/18 14:31 Last Admin: 11/08/18 15:00 Dose: 10 mg Bisacodyl (Dulcolax) 10 mg PO ONETIME ONE Stop: 11/08/18 20:01 Last Admin: 11/08/18 19:56 Dose: 10 mg Fentanyl (Sublimaze) Confirm Administered Dose 100 mcg .ROUTE .STK-MED ONE Stop: 11/09/18 08:48 Sodium Chloride (Normal Saline) 1,000 mls @ 999 mls/hr IV ASDIRECTED [facility] Last Admin: 11/08/18 07:35 Dose: 999 mls/hr Sodium Chloride (Normal Saline) 1,000 mls @ 999 mls/hr IV ASDIRECTED [facility] Last Admin: 11/08/18 08:09 Dose: 999 mls/hr Phytonadione 3 mg/ Sodium (Chloride) 50.3 mls @ 100 mls/hr IV ONETIME ONE Stop: 11/08/18 09:00 Last Admin: 11/08/18 08:32 Dose: 100 mls/hr Pantoprazole Sodium 80 mg/ (Sodium Chloride) 100 mls @ 10 mls/hr IV .Q10H [facility] Last Admin: 11/08/18 23:36 Dose: 10 mls/hr Sodium Chloride (Normal Saline) 1,000 mls @ 500 mls/hr IV ASDIRECTED [facility] Stop: 11/08/18 16:01 Last Admin: 11/08/18 14:00 Dose: 500 mls/hr Sodium Chloride (Normal Saline) 1,000 mls @ 125 mls/hr IV ASDIRECTED [facility] Last Admin: 11/09/18 07:43 Dose: 125 mls/hr Pantoprazole Sodium 80 mg/ (Sodium Chloride) 100 mls @ 10 mls/hr IV .Q10H [facility] Last Admin: 11/10/18 03:24 Dose: 10 mls/hr Midazolam HCl (Versed 1 Mg/Ml) Confirm Administered Dose 2 mg .ROUTE .STK-MED ONE Stop: 11/09/18 08:48 Pantoprazole Sodium (Protonix Iv) 80 mg IVPUSH ONETIME ONE Stop: 11/08/18 14:16 Last Admin: 11/08/18 14:50 Dose: 80 mg Polyethylene Glycol (Miralax) 238 gm PO ONETIME ONE Stop: 11/08/18 17:01 Last Admin: 11/08/18 17:28 Dose: 238 gm Propofol (Diprivan 20 Ml) Confirm Administered Dose 200 mg .ROUTE .STK-MED ONE Stop: 11/09/18 08:49 Warfarin Sodium (Coumadin) 7.5 mg PO DAILY@1300 [facility] - Exam Quality Assessment: Denies: Supplemental Oxygen General: Reports: Alert, Oriented, Cooperative, No Acute Distress Lungs: Reports: Normal Respiratory Effort Cardiovascular: Reports: Regular Rate, Regular Rhythm GI/Abdominal Exam: Soft, No Distention Extremities: No Pedal Edema Psy/Mental Status: Reports: Alert, Normal Affect *Q Meaningful Use (DIS) - VTE *Q VTE Pharmacological Contraindications *Q: Active Hemorrhage
== END 2018-11-11 11:35 | disposition home or self-care (01) | DRG 378 ==
LOC: JP.ED 06:33 → JP.ICU 12:58
PROVIDERS: ADMIT Hospitalist; ATTEND Internal Medicine
PROC: 30233K1 Transfusion of Nonautologous Frozen Plasma into Peripheral Vein, Percutaneous Approach (ICD-10-PCS; principal; 2018-11-08)
PROC: 0DJ08ZZ Inspection of Upper Intestinal Tract, Via Natural or Artificial Opening Endoscopic (ICD-10-PCS; 2018-11-09)
PROC: 0DJD8ZZ Inspection of Lower Intestinal Tract, Via Natural or Artificial Opening Endoscopic (ICD-10-PCS; 2018-11-09)
DX: K92.1 Melena (principal); K29.61 Other gastritis with bleeding; I69.954 Hemiplegia and hemiparesis following unspecified cerebrovascular disease affecting left non-dominant side; D68.9 Coagulation defect, unspecified; D62 Acute posthemorrhagic anemia; R55 Syncope and collapse; R53.1 Weakness; E11.9 Type 2 diabetes mellitus without complications; K27.4 Chronic or unspecified peptic ulcer, site unspecified, with hemorrhage; R42 Dizziness and giddiness; I25.10 Atherosclerotic heart disease of native coronary artery without angina pectoris; I48.0 Paroxysmal atrial fibrillation; I95.9 Hypotension, unspecified; E86.0 Dehydration; K64.4 Residual hemorrhoidal skin tags; H91.90 Unspecified hearing loss, unspecified ear; H54.7 Unspecified visual loss; N42.9 Disorder of prostate, unspecified; Z98.84 Bariatric surgery status; Z98.0 Intestinal bypass and anastomosis status; Z79.82 Long term (current) use of aspirin; Z79.01 Long term (current) use of anticoagulants; Z91.041 Radiographic dye allergy status; Z88.8 Allergy status to other drugs, medicaments and biological substances; Z79.84 Long term (current) use of oral hypoglycemic drugs
CPT/HCPCS: 36415; 70450; 80053; 81001; 82272; 83605; 84484; 85018; 85025; 85610; 86850; 86900; 86901; 86920 ×2; 86922 ×2; 93005; 96361; 96365; 99285; J3430; J7030 ×2; J7050; 36430; 80048; 82962; 83735; 85027; A9270-GY; C9113; J2250; J2704; J3010; P9017

== ENCOUNTER 2019-06-19 05:00 | Inpatient (IN) | payer MEDICARE, BC ==
[2019-06-19] MEDS ORDERED: Sodium Chloride 0.9% 1,000 ML IV SCH ×2 (05:30→06:15)
--- NOTE | 2019-06-19 05:42 | EDM.PDOC ---
ED HPI GENERAL MEDICAL PROBLEM - General Chief Complaint: Chest Pain Stated Complaint: WEAK Time Seen by Provider: 06/19/19 05:36 Source of Information: Reports: Patient History Limitations: Reports: No Limitations - History of Present Illness INITIAL COMMENTS - FREE TEXT/NARRATIVE: p arrived after an episode that made him feel very weak. He had a stool in the afternoon that looked quite black. He was seen in the am and he was found to have an INR greater than 3 according to the pt. He did develop some chest pain on the way in but he is doing ok at this point and is painfree. Onset: Today Duration: Hour(s): Location: Reports: Generalized, Other (pt felt very weak. ) Associated Symptoms: Reports: Chest Pain, Weakness Treatments CHIN STRAP CUTTER: Reports: Other (see below) Other Treatments CHIN STRAP CUTTER: none chest Pain Score (Numeric/FACES): 4 - Related Data Allergies Allergy/AdvReac Type Severity Reaction Status Date / Time bupropion [From Contrave] Allergy Nausea and Verified 06/19/19 05:59 Vomiting lisinopril Allergy Cough Verified 06/19/19 05:59 naltrexone [From Contrave] Allergy Nausea and Verified 06/19/19 05:59 Vomiting angiogram dye Allergy Hives Uncoded 06/19/19 05:59 Home Meds: Home Meds Acarbose [Precose] 25 mg PO TID 09/08/13 [History] Calcium Carb & Citrate/Vit D3 [Calcium + Vitamin D3 Caplet] 1 each PO DAILY [History] Cholecalciferol (Vitamin D3) [Vitamin D3] 5,000 units PO DAILY 09/08/13 [History ] Cyanocobalamin (Vitamin B-12) [Vitamin B-12] 1,000 mcg PO DAILY 09/08/13 [ History] Losartan/Hydrochlorothiazide [Hyzaar 100-12.5 Tablet] 0.5 each PO DAILY [History] Multivitamin [Multi-Vitamin Daily] 1 tab PO BID 09/08/13 [History] Vitamin B Complex 1 each PO DAILY 09/08/13 [History] Sotalol HCl [Sotalol] 80 mg PO BID 06/20/15 [History] Warfarin [Coumadin] 7.5 mg PO DAILY 06/20/15 [History] Aspirin [Lo-Dose Aspirin EC] 81 mg PO DAILY 09/18/17 [History] Liraglutide [Victoza] 0.6 mg SQ DAILY 09/18/17 [History] Nitroglycerin [Nitrostat] 0.4 mg SL ASDIRECTED 09/18/17 [History] Isosorbide Mononitrate [Imdur] 30 mg PO DAILY 01/17/18 [History] Escitalopram [Lexapro] 20 mg PO BEDTIME 02/25/18 [History] busPIRone [Buspar] 10 mg PO BID 02/25/18 [History] Past Medical History HEENT History: Reports: Hard of Hearing, Impaired Vision Cardiovascular History: Reports: Afib, CAD, Pacemaker, Stents Genitourinary History: Reports: Prostate Disorder, Other (See Below) Other Genitourinary History: Frequent nocturnal urination Neurological History: Reports: CVA, Other (See Below) Other Neuro History: 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 Endocrine/Metabolic History: Reports: Diabetes, Type II, Other (See Below) Other Endocrine/Metabolic History: 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 Hematologic History: Reports: Anticoagulation Therapy - Infectious Disease History Infectious Disease History: Reports: Chicken Pox - Past Surgical History Head Surgeries/Procedures: Reports: None HEENT Surgical History: Reports: Cataract Surgery, Retinal Cardiovascular Surgical History: Reports: Cardiac Ablation GI Surgical History: Reports: Appendectomy, Bariatric Procedure, Colonoscopy Musculoskeletal Surgical History: Reports: Arthroscopic Knee Social & Family History - Family History Family Medical History: Unobtainable Cardiac: Reports: CAD Oncologic: Reports: Uterine - Caffeine Use Caffeine Use: Reports: Coffee ED ROS GENERAL - Review of Systems Review Of Systems: See Below Constitutional: Reports: Weakness, Other (pt went to the br nd he ended up going to the floor because he was so weak he was not able to get up. He was very sweaty. ) HEENT: Reports: No Symptoms Respiratory: Reports: No Symptoms Cardiovascular: Reports: Other (pt did develop some chest pain briefly) Endocrine: Reports: No Symptoms GI/Abdominal: Reports: Black Stool, Nausea : Reports: No Symptoms Musculoskeletal: Reports: No Symptoms Skin: Reports: No Symptoms ED EXAM, GENERAL - Physical Exam Exam: See Below Free Text/Narrative:: pt arrived vry sweaty nd he was complaining of chest pain. He had gotten up to the Br and was so weak he was not able to get off the stool. Earlier in the day he had a black tarry stool. He was found to have a high INR today. Exam Limited By: No Limitations General Appearance: Alert, No Apparent Distress, Anxious, Other (pupils equal and reactive. ) Ears: Normal TMs Nose: Normal Inspection Throat/Mouth: Normal Inspection Head: Atraumatic Neck: Normal Inspection Respiratory/Chest: No Respiratory Distress Cardiovascular: Regular Rate, Rhythm GI/Abdominal: Soft, Non-Tender (Male) Exam: Deferred Rectal (Males) Exam: Other (pt hd no masses felt but his stool is very black and tarry. ) Back Exam: Normal Inspection Extremities: Normal Inspection Neurological: Alert, Oriented, Normal Cognition Psychiatric: Normal Affect Course - Vital Signs Last Recorded V/S: Last Vital Signs Temp 36.0 C 06/19/19 05:00 Pulse 60 06/19/19 05:00 Resp 19 06/19/19 05:00 BP 103/55 L 06/19/19 05:00 Pulse Ox 96 06/19/19 05:00 - Orders/Labs/Meds Orders: Active Orders 24 hr Category Date Time Status EKG Documentation Completion [RC] ASDIRECTED Care 06/19/19 05:24 Active Chest 1V Frontal [CR] Stat Exams 06/19/19 05:48 Taken RED BLOOD CELLS LP [BBK] Stat Lab 06/19/19 06:12 Ordered TROPONIN I [CHEM] Stat Lab 06/19/19 06:21 Ordered TYPE AND SCREEN [BBK] Stat Lab 06/19/19 06:12 Ordered UA W/MICROSCOPIC [URIN] Urgent Lab 06/19/19 05:47 Ordered Pantoprazole [ProTONIX IV] 80 mg Med 06/19/19 06:15 Active Sodium Chloride 0.9% [Normal Saline] 100 ml IV .BOLUS Sodium Chloride 0.9% [Normal Saline] 1,000 ml Med 06/19/19 05:30 Active IV ASDIRECTED Sodium Chloride 0.9% [Normal Saline] 1,000 ml Med 06/19/19 06:15 Active IV ASDIRECTED EKG 12 Lead [EK] Routine Ther 06/19/19 05:24 Ordered Medication Orders Sodium Chloride (Normal Saline) 1,000 mls @ 999 mls/hr IV ASDIRECTED [facility] Last Admin: 06/19/19 05:38 Dose: 999 mls/hr Pantoprazole Sodium 80 mg/ (Sodium Chloride) 100 mls @ 200 mls/hr IV .BOLUS [facility] Sodium Chloride (Normal Saline) 1,000 mls @ 350 mls/hr IV ASDIRECTED [facility] Last Admin: 06/19/19 06:23 Dose: 350 mls/hr Labs: Laboratory Tests 06/19/19 06/19/19 06/19/19 Range/Units 05:22 05:22 05:22 WBC 7.8 (4.5-11.0) K/uL RBC 4.34 (4.30-5.90) M/uL Hgb 12.5 D (12.0-15.0) g/dL Hct 38.3 L (40.0-54.0) % MCV 88 (80-98) fL MCH 29 (27-31) pg MCHC 33 (32-36) % Plt Count 274 (150-400) K/uL Neut % (Auto) 69 H (36-66) % Lymph % (Auto) 22 L (24-44) % [place] % (Auto) 8 H (2-6) % Eos % (Auto) 1 L (2-4) % Baso % (Auto) 0 (0-1) % PT 24.0 H (9.5-12.0) sec INR 2.33 H (0.80-1.20) Sodium 140 (140-148) mmol/L Potassium 4.6 (3.6-5.2) mmol/L Chloride 106 (100-108) mmol/L Carbon Dioxide 22 (21-32) mmol/L Anion Gap 12.3 (5.0-14.0) mmol/L BUN 51 H D (7-18) mg/dL Creatinine 0.8 (0.8-1.3) mg/dL Est Cr Clr Drug Dosing 76.00 mL/min Estimated GFR (MDRD) > 60 (>60) Glucose 166 H (74-106) mg/dL Calcium 8.3 L (8.5-10.1) mg/dL Total Bilirubin 0.5 D (0.2-1.0) mg/dL AST 34 (15-37) U/L ALT 58 (12-78) U/L Alkaline Phosphatase 56 (46-116) U/L Troponin I (0.000-0.056) ng/mL Total Protein 6.4 (6.4-8.2) g/dL Albumin 3.2 L (3.4-5.0) g/dL Globulin 3.2 (2.3-3.5) g/dL Albumin/Globulin Ratio 1.0 L (1.2-2.2) 06/19/19 Range/Units 05:22 WBC (4.5-11.0) K/uL RBC (4.30-5.90) M/uL Hgb (12.0-15.0) g/dL Hct (40.0-54.0) % MCV (80-98) fL MCH (27-31) pg MCHC (32-36) % Plt Count (150-400) K/uL Neut % (Auto) (36-66) % Lymph % (Auto) (24-44) % [place] % (Auto) (2-6) % Eos % (Auto) (2-4) % Baso % (Auto) (0-1) % PT (9.5-12.0) sec INR (0.80-1.20) Sodium (140-148) mmol/L Potassium (3.6-5.2) mmol/L Chloride (100-108) mmol/L Carbon Dioxide (21-32) mmol/L Anion Gap (5.0-14.0) mmol/L BUN (7-18) mg/dL Creatinine (0.8-1.3) mg/dL Est Cr Clr Drug Dosing mL/min Estimated GFR (MDRD) (>60) Glucose (74-106) mg/dL Calcium (8.5-10.1) mg/dL Total Bilirubin (0.2-1.0) mg/dL AST (15-37) U/L ALT (12-78) U/L Alkaline Phosphatase (46-116) U/L Troponin I < 0.017 (0.000-0.056) ng/mL Total Protein (6.4-8.2) g/dL Albumin (3.4-5.0) g/dL Globulin (2.3-3.5) g/dL Albumin/Globulin Ratio (1.2-2.2) Meds: Medications Generic Name Dose Route Start Last Admin Trade Name Freq PRN Reason Stop Dose Admin Sodium Chloride 1,000 mls @ 999 mls/hr 06/19/19 05:30 06/19/19 05:38 Normal Saline IV 999 mls/hr ASDIRECTED [facility] Administration Pantoprazole Sodium 80 mg/ 100 mls @ 200 mls/hr 06/19/19 06:15 Sodium Chloride IV .BOLUS [facility] Sodium Chloride 1,000 mls @ 350 mls/hr 06/19/19 06:15 06/19/19 06:23 Normal Saline IV 350 mls/hr ASDIRECTED [facility] Administration - Re-Assessments/Exams Free Text/Narrative Re-Assessment/Exam: 06/19/19 05:52 pt does have a normal hg at 12. His inr is 2.33. He did drop his bp in the 90s systolic nd his fluids were given wide open. Pt was bolused with fluid and he is doing better. 06/19/19 05:58 06/19/19 05:59 pt does admit to having chest pain 2 days ago. He took one nitro and the pain went away. 06/19/19 06:22 pt had a notrmal trop but he will have a second trop at 7 thirty. 06/19/19 06:25 pt does have a pacemaker in place. He has a long history of atrial fib and is on coumadin for that reason. Pt has also had stents in the past. Departure - Departure Time of Disposition: 06:23 Disposition: Admitted As Inpatient 68 Condition: Fair Clinical Impression: GI bleeding, Near syncope, History of Coumadin therapy Referrals: Steven Jo, [employer] [Primary Care Provider] - Forms: ED Department Discharge Care Plan Goals: admit to Dr Menezes. Sepsis Event Note - Evaluation Sepsis Screening Result: No Definite Risk - Focused Exam Vital Signs: Vital Signs Temp Pulse Resp BP Pulse Ox 06/19/19 05:00 36.0 C 60 19 103/55 L 96 Date Exam was Performed: 06/19/19 Time Exam was Performed: 06:25 - My Orders Last 24 Hours: My Active Orders 06/19/19 05:24 EKG Documentation Completion [RC] ASDIRECTED EKG 12 Lead [EK] Routine 06/19/19 05:30 Sodium Chloride 0.9% [Normal Saline] 1,000 ml IV ASDIRECTED 06/19/19 05:47 UA W/MICROSCOPIC [URIN] Urgent 06/19/19 05:48 Chest 1V Frontal [CR] Stat 06/19/19 06:12 RED BLOOD CELLS LP [BBK] Stat TYPE AND SCREEN [BBK] Stat 06/19/19 06:15 Pantoprazole [ProTONIX IV] 80 mg Sodium Chloride 0.9% [Normal Saline] 100 ml IV .BOLUS Sodium Chloride 0.9% [Normal Saline] 1,000 ml IV ASDIRECTED 06/19/19 06:21 TROPONIN I [CHEM] Stat - Assessment/Plan Last 24 Hours: My Active Orders 06/19/19 05:24 EKG Documentation Completion [RC] ASDIRECTED EKG 12 Lead [EK] Routine 06/19/19 05:30 Sodium Chloride 0.9% [Normal Saline] 1,000 ml IV ASDIRECTED 06/19/19 05:47 UA W/MICROSCOPIC [URIN] Urgent 06/19/19 05:48 Chest 1V Frontal [CR] Stat 06/19/19 06:12 RED BLOOD CELLS LP [BBK] Stat TYPE AND SCREEN [BBK] Stat 06/19/19 06:15 Pantoprazole [ProTONIX IV] 80 mg Sodium Chloride 0.9% [Normal Saline] 100 ml IV .BOLUS Sodium Chloride 0.9% [Normal Saline] 1,000 ml IV ASDIRECTED 06/19/19 06:21 TROPONIN I [CHEM] Stat
[2019-06-19] MEDS ORDERED: Pantoprazole 80 MG in Sodium Chloride 0.9% 100 ML IV SCH (06:15)
--- NOTE | 2019-06-19 06:28 | CRLCR ---
INDICATION: Chest pain. Shortness of breath. COMPARISON: Two view chest dated 01/17/2018 TECHNIQUE: Portable AP erect chest performed at 6:08 a.m. FINDINGS: The lungs are clear. There is no evidence of pneumothorax or pneumomediastinum. There is a small hiatal hernia. The patient has a left-sided dual-chamber cardiac pacemaker. The heart and pulmonary vessels are within normal range in size. There is no evidence of pleural fluid. Incidentally noted are old healed left rib fractures. IMPRESSION: No acute cardiopulmonary disease process identified. Dictated by Gabriele Mckenna MD @ 06/19/2019 6:26:20 AM Dictated by: Gabriele Mckenna MD @ 06/19/2019 06:26:36 (Electronically Signed)
[2019-06-19] MEDS ORDERED: Phytonadione 5 MG in Sodium Chloride 0.9% 50 ML IV ONE (08:00)
[2019-06-19] MEDS ORDERED: Octreotide 100 MCG/ML SDV IVPUSH ONE (08:00)
[2019-06-19] MEDS ORDERED: 50% Dextrose in Water 50 ML Syringe IV PRN (08:25)
[2019-06-19] MEDS ORDERED: Ondansetron 4 MG/2 ML SDV IV PRN (08:25)
[2019-06-19] MEDS ORDERED: Glucose Gel 15 GM in 37.5 GM Tube PO PRN (08:25)
[2019-06-19] MEDS ORDERED: Acetaminophen 325 MG Tab PO PRN (08:25)
[2019-06-19] MEDS ORDERED: Sodium Chloride 0.9% 10 ML Syringe FLUSH PRN (08:25)
--- NOTE | 2019-06-19 08:31 | PCM.HP.2 ---
H&P History of Present Illness - General Date of Service: 06/19/19 Admit Problem/Dx: Admission Diagnosis/Problem Admission Diagnosis/Problem Bleeding Source of Information: Patient, Old Records, Provider, RN Notes Reviewed History Limitations: Reports: No Limitations - History of Present Illness Initial Comments - Free Text/Narative: Mr. Leach a 78-year-old gentleman who was admitted through the emergency department with weakness, lightheadedness, and melenic stools secondary to an upper GI bleed. He has had previous history of gastric bypass surgery and has had recurrent episodes of bleeding. 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 He is on long-term oral anticoagulation with warfarin because of underlying atrial fibrillation. He felt well yesterday but awoke early this morning feeling weak and lightheaded with melenic stools. He reports a mild episode of chest pain in the ambulance coming into the emergency department, troponin level is within normal range. INR is within therapeutic range at 2.3. chest Pain Score (Numeric/FACES): 4 - Related Data Allergies/Adverse Reactions: Allergies Allergy/AdvReac Type Severity Reaction Status Date / Time Iodinated Contrast Media Allergy Hives Verified 06/19/19 07:52 bupropion [From Contrave] AdvReac Nausea and Verified 06/19/19 07:52 Vomiting lisinopril AdvReac Cough Verified 06/19/19 07:52 naltrexone [From Contrave] AdvReac Nausea and Verified 06/19/19 07:52 Vomiting Home Medications: Home Meds Acarbose [Precose] 25 mg PO TID 09/08/13 [History] Calcium Carb & Citrate/Vit D3 [Calcium + Vitamin D3 Caplet] 1 each PO DAILY [History] Cholecalciferol (Vitamin D3) [Vitamin D3] 5,000 units PO DAILY 09/08/13 [History ] Cyanocobalamin (Vitamin B-12) [Vitamin B-12] 1,000 mcg PO DAILY 09/08/13 [ History] Losartan/Hydrochlorothiazide [Hyzaar 100-12.5 Tablet] 0.5 each PO DAILY [History] Multivitamin [Multi-Vitamin Daily] 1 tab PO BID 09/08/13 [History] Vitamin B Complex 1 each PO DAILY 09/08/13 [History] Sotalol HCl [Sotalol] 80 mg PO BID 06/20/15 [History] Warfarin [Coumadin] 7.5 mg PO DAILY 06/20/15 [History] Aspirin [Lo-Dose Aspirin EC] 81 mg PO DAILY 09/18/17 [History] Liraglutide [Victoza] 0.6 mg SQ DAILY 09/18/17 [History] Nitroglycerin [Nitrostat] 0.4 mg SL ASDIRECTED 09/18/17 [History] Isosorbide Mononitrate [Imdur] 30 mg PO DAILY 01/17/18 [History] Escitalopram [Lexapro] 20 mg PO BEDTIME 02/25/18 [History] busPIRone [Buspar] 10 mg PO BID 02/25/18 [History] Past Medical History HEENT History: Reports: Hard of Hearing, Impaired Vision Cardiovascular History: Reports: Afib, CAD, Pacemaker, Stents Other Cardiovascular History: Diastolic Dysfunction, Tachy-Rizwan Syndrome Respiratory History: Reports: COPD Genitourinary History: Reports: Prostate Disorder, Other (See Below) Other Genitourinary History: Frequent nocturnal urination Neurological History: Reports: CVA, Other (See Below) Other Neuro History: 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 Psychiatric History: Reports: Anxiety, Depression Endocrine/Metabolic History: Reports: Diabetes, Type II, Other (See Below) Other Endocrine/Metabolic History: 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 Hematologic History: Reports: Anticoagulation Therapy - Infectious Disease History Infectious Disease History: Reports: Chicken Pox - Past Surgical History Head Surgeries/Procedures: Reports: None HEENT Surgical History: Reports: Cataract Surgery, Retinal Cardiovascular Surgical History: Reports: Cardiac Ablation GI Surgical History: Reports: Appendectomy, Bariatric Procedure, Colonoscopy Musculoskeletal Surgical History: Reports: Arthroscopic Knee Social & Family History - Family History Family Medical History: Unobtainable Cardiac: Reports: CAD Oncologic: Reports: Uterine - Tobacco Use Smoking Status *Q: Never Smoker Second Hand Smoke Exposure: No - Caffeine Use Caffeine Use: Reports: Coffee - Recreational Drug Use Recreational Drug Use: No H&P Review of Systems - Review of Systems: Review Of Systems: See Below General: Reports: Malaise, Weakness. Denies: Fever, Chills HEENT: Reports: No Symptoms Pulmonary: Reports: No Symptoms Cardiovascular: Reports: No Symptoms Gastrointestinal: Reports: Melena. Denies: Abdominal Pain, Constipation, Diarrhea, Decreased Appetite, Difficulty Swallowing, Distension, Hematemesis, Hematochezia, Nausea, Vomiting Genitourinary: Reports: No Symptoms Musculoskeletal: Reports: No Symptoms Skin: Reports: No Symptoms Psychiatric: Reports: No Symptoms Neurological: Reports: No Symptoms Hematologic/Lymphatic: Reports: No Symptoms Immunologic: Reports: No Symptoms Exam - Exam Exam: See Below - Vital Signs Vital Signs: Last Vital Signs Temp 96.8 F 06/19/19 05:00 Pulse 60 06/19/19 07:20 Resp 15 06/19/19 07:20 BP 104/51 L 06/19/19 07:20 Pulse Ox 99 06/19/19 07:20 Weight: 220 lb - Exam General: Alert, Oriented, Cooperative, Mild Distress HEENT: Conjunctiva Clear, Hearing Intact, Mucosa Moist & [place], Normal Nasal Septum, Posterior Pharynx Clear, Pupils Equal Neck: Supple, Trachea Midline, +2 Carotid Pulse wo Bruit Lungs: Clear to Auscultation, Normal Respiratory Effort Cardiovascular: Regular Rate, Regular Rhythm, Normal S1, Normal S2. No: Systolic Murmur, Diastolic Murmur GI/Abdominal Exam: Soft, Non-Tender, No Organomegaly, No Distention Back Exam: Normal Inspection, Full Range of Motion Extremities: Non-Tender, No Pedal Edema Skin: Warm, Dry, Intact Neurological: Cranial Nerves Intact, Strength Equal Bilateral, Normal Speech, Normal Tone, Sensation Intact. No: Focal Deficit Neuro Extensive - Mental Status: Alert, Oriented x3, Normal Mood/Affect, Normal Cognition, Memory Intact - Patient Data Lab Results Last 24 hrs: Laboratory Results - last 24 hr 06/19/19 06/19/19 06/19/19 Range/Units 05:22 05:22 05:22 WBC 7.8 (4.5-11.0) K/uL RBC 4.34 (4.30-5.90) M/uL Hgb 12.5 D (12.0-15.0) g/dL Hct 38.3 L (40.0-54.0) % MCV 88 (80-98) fL MCH 29 (27-31) pg MCHC 33 (32-36) % Plt Count 274 (150-400) K/uL Neut % (Auto) 69 H (36-66) % Lymph % (Auto) 22 L (24-44) % Sargent % (Auto) 8 H (2-6) % Eos % (Auto) 1 L (2-4) % Baso % (Auto) 0 (0-1) % PT 24.0 H (9.5-12.0) sec INR 2.33 H (0.80-1.20) Sodium 140 (140-148) mmol/L Potassium 4.6 (3.6-5.2) mmol/L Chloride 106 (100-108) mmol/L Carbon Dioxide 22 (21-32) mmol/L Anion Gap 12.3 (5.0-14.0) mmol/L BUN 51 H D (7-18) mg/dL Creatinine 0.8 (0.8-1.3) mg/dL Est Cr Clr Drug Dosing 76.00 mL/min Estimated GFR (MDRD) > 60 (>60) Glucose 166 H (74-106) mg/dL Calcium 8.3 L (8.5-10.1) mg/dL Total Bilirubin 0.5 D (0.2-1.0) mg/dL AST 34 (15-37) U/L ALT 58 (12-78) U/L Alkaline Phosphatase 56 (46-116) U/L Troponin I (0.000-0.056) ng/mL Total Protein 6.4 (6.4-8.2) g/dL Albumin 3.2 L (3.4-5.0) g/dL Globulin 3.2 (2.3-3.5) g/dL Albumin/Globulin Ratio 1.0 L (1.2-2.2) Blood Type Gel Antibody Screen Crossmatch 06/19/19 06/19/19 06/19/19 Range/Units 05:22 06:12 06:21 WBC (4.5-11.0) K/uL RBC (4.30-5.90) M/uL Hgb (12.0-15.0) g/dL Hct (40.0-54.0) % MCV (80-98) fL MCH (27-31) pg MCHC (32-36) % Plt Count (150-400) K/uL Neut % (Auto) (36-66) % Lymph % (Auto) (24-44) % Sargent % (Auto) (2-6) % Eos % (Auto) (2-4) % Baso % (Auto) (0-1) % PT (9.5-12.0) sec INR (0.80-1.20) Sodium (140-148) mmol/L Potassium (3.6-5.2) mmol/L Chloride (100-108) mmol/L Carbon Dioxide (21-32) mmol/L Anion Gap (5.0-14.0) mmol/L BUN (7-18) mg/dL Creatinine (0.8-1.3) mg/dL Est Cr Clr Drug Dosing mL/min Estimated GFR (MDRD) (>60) Glucose (74-106) mg/dL Calcium (8.5-10.1) mg/dL Total Bilirubin (0.2-1.0) mg/dL AST (15-37) U/L ALT (12-78) U/L Alkaline Phosphatase (46-116) U/L Troponin I < 0.017 < 0.017 (0.000-0.056) ng/mL Total Protein (6.4-8.2) g/dL Albumin (3.4-5.0) g/dL Globulin (2.3-3.5) g/dL Albumin/Globulin Ratio (1.2-2.2) Blood Type A POSITIVE Gel Antibody Screen Negative Crossmatch See Detail Result Diagrams: 06/19/19 05:22 06/19/19 05:22 Jerome Results Last 24 hrs: Microbiology 06/19/19 05:51 Stool Occult Blood (JEROME) - Final Stool / Feces Sepsis Event Note - Evaluation Sepsis Screening Result: No Definite Risk - Focused Exam Vital Signs: Vital Signs Temp Pulse Resp BP Pulse Ox 06/19/19 07:20 60 15 104/51 L 99 06/19/19 07:05 60 17 103/58 L 98 06/19/19 06:35 60 19 113/62 99 06/19/19 06:05 61 18 93/50 L 98 06/19/19 05:33 60 16 108/63 95 06/19/19 05:00 96.8 F 60 19 103/55 L 96 Date Exam was Performed: 06/19/19 Time Exam was Performed: 08:31 *Q Meaningful Use (ADM) - VTE *Q VTE Pharmacological Contraindications *Q: Active Hemorrhage - VTE Risk Assess *Q Each Risk Factor Represents 1 Point: Obesity ( BMI > 25 kg/m2) Total Score 1 Point Risk Factors: 1 Each Risk Factor Represents 2 Points: None Total Score 2 Point Risk Factors: 0 Each Risk Factor Represents 3 Points: Age 75 Years or Greater Total Score 3 Point Risk Factors: 3 Each Risk Factor Represents 5 Points: None Total Score 5 Point Risk Factors: 0 Venous Thromboembolism Risk Factor Score *Q: 4 Problem List Initiated/Reviewed/Updated: Yes Orders Last 24hrs: Active Orders 24 hr Category Date Time Status Patient Status [ADT] Routine ADT 06/19/19 08:25 Active Ambulate [RC] QID Care 06/19/19 08:25 Active Blood Glucose Check, Bedside [RC] QIDACANDBED Care 06/19/19 08:25 Active Cardiac Monitoring [RC] .As Directed Care 06/19/19 08:25 Active Communication Order [RC] STAT Care 06/19/19 08:25 Active Diabetes Education [RC] Click to Edit Care 06/19/19 08:25 Active Height and Weight [RC] DAILY Care 06/19/19 08:25 Active Intake and Output [RC] QSHIFT Care 06/19/19 08:25 Active Notify Provider Consults [RC] ASDIRECTED Care 06/19/19 08:25 Active Notify Provider Vital Signs [RC] ASDIRECTED Care 06/19/19 08:25 Active Notify Provider [RC] PRN Care 06/19/19 08:25 Active Oxygen Therapy [RC] PRN Care 06/19/19 08:25 Active Peripheral IV Care [RC] . DIRECTED Care 06/19/19 08:25 Active Up With Assistance [RC] ASDIRECTED Care 06/19/19 08:25 Active Up to Chair [RC] QID Care 06/19/19 08:25 Active VTE/DVT Education [RC] Per Unit Routine Care 06/19/19 08:25 Active Vital Signs [RC] Q4H Care 06/19/19 08:25 Active Consult to Physician [CONS] Routine Cons 06/19/19 08:25 Ordered Nothing per Oral Now Diet [DIET] Diet 06/19/19 Breakfast Active BASIC METABOLIC PANEL,BMP [CHEM] AM Lab 06/20/19 05:11 Ordered CBC WITH AUTO DIFF [HEME] AM Lab 06/20/19 05:11 Ordered FRESH FROZEN PLASMA [BBK] Stat Lab 06/19/19 06:12 Results GLUCOSE POC LAB TO COLLECT [POC] QIDACANDBED Lab 06/19/19 11:30 Ordered GLUCOSE POC LAB TO COLLECT [POC] QIDACANDBED Lab 06/19/19 16:30 Ordered GLUCOSE POC LAB TO COLLECT [POC] QIDACANDBED Lab 06/19/19 21:00 Ordered GLUCOSE POC LAB TO COLLECT [POC] QIDACANDBED Lab 06/20/19 07:30 Ordered GLUCOSE POC LAB TO COLLECT [POC] QIDACANDBED Lab 06/20/19 11:30 Ordered GLUCOSE POC LAB TO COLLECT [POC] QIDACANDBED Lab 06/20/19 16:30 Ordered GLUCOSE POC LAB TO COLLECT [POC] QIDACANDBED Lab 06/20/19 21:00 Ordered GLUCOSE POC LAB TO COLLECT [POC] QIDACANDBED Lab 06/21/19 07:30 Ordered GLUCOSE POC LAB TO COLLECT [POC] QIDACANDBED Lab 06/21/19 11:30 Ordered GLUCOSE POC LAB TO COLLECT [POC] QIDACANDBED Lab 06/21/19 16:30 Ordered GLUCOSE POC LAB TO COLLECT [POC] QIDACANDBED Lab 06/21/19 21:00 Ordered GLUCOSE POC LAB TO COLLECT [POC] QIDACANDBED Lab 06/22/19 07:30 Ordered GLUCOSE POC LAB TO COLLECT [POC] QIDACANDBED Lab 06/22/19 11:30 Ordered GLUCOSE POC LAB TO COLLECT [POC] QIDACANDBED Lab 06/22/19 16:30 Ordered GLUCOSE POC LAB TO COLLECT [POC] QIDACANDBED Lab 06/22/19 21:00 Ordered GLUCOSE POC LAB TO COLLECT [POC] QIDACANDBED Lab 06/23/19 07:30 Ordered GLUCOSE POC LAB TO COLLECT [POC] QIDACANDBED Lab 06/23/19 11:30 Ordered GLUCOSE POC LAB TO COLLECT [POC] QIDACANDBED Lab 06/23/19 16:30 Ordered GLUCOSE POC LAB TO COLLECT [POC] QIDACANDBED Lab 06/23/19 21:00 Ordered GLUCOSE POC LAB TO COLLECT [POC] QIDACANDBED Lab 06/24/19 07:30 Ordered HGB [HEMOGLOBIN] [HEME] Stat Lab 06/19/19 11:00 Ordered HGB [HEMOGLOBIN] [HEME] Stat Lab 06/19/19 17:00 Ordered HGB [HEMOGLOBIN] [HEME] Stat Lab 06/19/19 23:00 Ordered RED BLOOD CELLS LP [BBK] Stat Lab 06/19/19 06:12 Results TROPONIN I [CHEM] Stat Lab 06/19/19 11:00 Ordered TROPONIN I [CHEM] Stat Lab 06/19/19 17:00 Ordered TYPE AND SCREEN [BBK] Stat Lab 06/19/19 06:12 Results Acetaminophen [Tylenol] Med 06/19/19 08:25 Ordered 650 mg PO Q4H PRN Dextrose 50% in Water Med 06/19/19 08:25 Ordered 50 ml IV ONETIME PRN Dextrose [Glutose 15] Med 06/19/19 08:25 Ordered 15 gm PO ONETIME PRN Escitalopram [Lexapro] Med 06/19/19 21:00 Ordered 20 mg PO BEDTIME Insulin Lispro [HumaLOG] Med 06/19/19 11:00 Ordered See Protocol SUBCUT QIDACANDBED Isosorbide Mononitrate [Imdur] Med 06/19/19 09:00 Ordered 30 mg PO DAILY Losartan/Hydrochlorothiazide [Hyzaar 100-12.5 Tablet] Med 06/19/19 09:00 Ordered 0.5 each PO DAILY Octreotide [SandoSTATIN] 500 mcg Med 06/19/19 08:30 Active Sodium Chloride 0.9% [Normal Saline] 497.5 ml IV Q10H Ondansetron [Zofran] Med 06/19/19 08:25 Ordered 4 mg IV Q4H PRN Phytonadione [AquaMephyton] 5 mg Med 06/19/19 08:00 Active Sodium Chloride 0.9% [Normal Saline] 50 ml IV NOW Sodium Chloride 0.9% @ 125 MLS/HR (1000ml) Med 06/19/19 08:25 Ordered Sodium Chloride 0.9% [Normal Saline] 1,000 ml IV ASDIRECTED Sodium Chloride 0.9% [Normal Saline] 100 ml Med 06/19/19 08:30 Active Pantoprazole [ProTONIX IV] 80 mg IV 10 mls/hr Sodium Chloride 0.9% [Saline Flush] Med 06/19/19 08:25 Ordered 10 ml FLUSH ASDIRECTED PRN Sotalol [Betapace] Med 06/19/19 09:00 Ordered 80 mg PO BID Peripheral IV Insertion Adult [OM.PC] Routine Oth 06/19/19 08:25 Ordered Sequential Compression Device [OM.PC] Per Unit Routine Oth 06/19/19 08:25 Ordered Transfuse Fresh Frozen Plasma [COMM] Stat Oth 06/19/19 08:15 Ordered VTE Pharmacological Contraindications [AST] Per Unit Oth 06/19/19 08:25 Ordered Routine Resuscitation Status Routine Resus Stat 06/19/19 07:49 Ordered EKG 12 Lead [EK] Routine Ther 06/19/19 05:24 Stop Req Medication Orders Pantoprazole Sodium 80 mg/ (Sodium Chloride) 100 mls @ 10 mls/hr IV .Q10H PERLA Phytonadione 5 mg/ Sodium (Chloride) 50.5 mls @ 100 mls/hr IV NOW ONE Stop: 06/19/19 08:30 Last Admin: 06/19/19 08:16 Dose: 100 mls/hr Octreotide Acetate 500 mcg/ (Sodium Chloride) 500 mls @ 50 mls/hr IV Q10H PERLA Assessment/Plan Comment:: ASSESSMENT AND PLAN UPPER GI BLEED-associated with weakness, lightheadedness, and melenic stools. 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 On oral anticoagulation with warfarin because of underlying atrial fibrillation. -Hold warfarin -Vitamin K 5 mg IV now -2 units of fresh frozen plasma -Red blood cells on hold -Maintain 2 IV sites -Protonix 80 mg IV bolus given in the ED -Continuous infusion of Protonix IV -Octreotide bolus and continuous infusion -Serial hemoglobin levels -Consult Dr. Whiting for EGD TYPE 2 DIABETES MELLITUS -Hold outpatient medications while n.p.o. -4 times daily glucometers -Low-dose sliding scale Humalog ATRIAL FIBRILLATION-rate well controlled -Continue outpatient medications MAINTENANCE ISSUES -DVT prophylaxis; anticoagulation contraindicated because because of acute bleed , SCUDs -GI prophylaxis; Protonix as above -Carson catheter; not indicated -Nutrition; n.p.o. -Nicotine dependence; not required CODE STATUS-FULL CODE ADMISSION STATUS-patient will be admitted to inpatient status, expect at least a 2 night hospital stay for evaluation and management of problems as outlined above. At the time of this admission I do not reasonably expected evaluation and management of this problem will require more than a 96 hour hospital stay. DISPOSITION-anticipate discharge to home after the hospital stay. PRIMARY CARE PROVIDER-Steven Jo - Mortality Measure Prognosis:: Good
[2019-06-19] MEDS: Octreotide 500 MCG in Sodium Chloride 0.9% 497.5 ML IV SCH ×2 (08:45→20:07)
[2019-06-19] MEDS: Sodium Chloride 0.9% 100 ML with Pantoprazole 80 MG IV SCH ×4 (08:54→20:06)
[2019-06-19] MEDS ORDERED: LOSARTAN PO SCH (09:00)
[2019-06-19] MEDS ORDERED: [UNRECOGNIZED DRUG - OTHER] PO SCH (09:00)
[2019-06-19] MEDS ORDERED: HYDROCHLOROTHIAZIDE PO SCH (09:00)
[2019-06-19] MEDS: Isosorbide Mononitrate 30 MG Tab.ER PO SCH (10:06)
[2019-06-19] MEDS: Sotalol 80 MG Tab PO SCH ×3 (10:07→21:15)
[2019-06-19] MEDS: Losartan 50 MG Tab PO SCH (10:07)
[2019-06-19] MEDS: Hydrochlorothiazide 25 MG Tab PO SCH (10:07)
[2019-06-19] MEDS ORDERED: Propofol 200 MG/20 ML SDV ONE (10:44)
[2019-06-19] MEDS: Insulin Lispro 100 Unit/ML 3 ML KwikPen SUBCUT SCH ×3 (11:43→21:17)
[2019-06-19] MEDS ORDERED: Bisacodyl 5 MG Tab PO ONE ×2 (12:00→20:00)
[2019-06-19] MEDS: Sodium Chloride 0.9% 1,000 ML IV SCH ×2 (13:00→21:14)
[2019-06-19] MEDS ORDERED: Polyethylene Glycol 3350 Powder 238 GM Bot PO ONE (17:00)
[2019-06-19] MEDS: Escitalopram 20 MG Tab PO SCH (21:16)
[2019-06-20] MEDS: Sodium Chloride 0.9% 1,000 ML IV SCH (05:21)
[2019-06-20] MEDS: Sodium Chloride 0.9% 100 ML with Pantoprazole 80 MG IV SCH ×4 (05:32→14:58)
[2019-06-20] MEDS: Octreotide 500 MCG in Sodium Chloride 0.9% 497.5 ML IV SCH (05:34)
[2019-06-20] MEDS ORDERED: Propofol 200 MG/20 ML SDV ONE (08:53)
[2019-06-20] MEDS ORDERED: fentaNYL 100 MCG/2 ML SDV ONE (08:54)
--- NOTE | 2019-06-20 09:24 | PCM.PN ---
- General Info Date of Service: 06/20/19 Subjective Update: Mr. Leahc has been stable since yesterday with no significant drop in blood pressure or tachycardia. Hemoglobin has dropped to 8.6. EGD showed no obvious source of active bleeding, colonoscopy this morning is pending. Functional Status: Reports: Ambulating, Urinating - Review of Systems General: Reports: Weakness. Denies: Fever, Chills Pulmonary: Reports: No Symptoms Cardiovascular: Reports: No Symptoms Gastrointestinal: Denies: Abdominal Pain, Difficulty Swallowing, Hematochezia, Melena, Nausea, Vomiting Genitourinary: Reports: No Symptoms - Patient Data Vitals - Most Recent: Last Vital Signs Temp 97.1 F 06/20/19 08:29 Pulse 60 06/20/19 08:29 Resp 17 06/20/19 08:29 BP 116/66 06/20/19 08:29 Pulse Ox 99 06/20/19 08:29 Weight - Most Recent: 209 lb 15.986 oz I&O - Last 24 Hours: Intake & Output 06/19/19 06/20/19 06/20/19 22:59 06:59 14:59 Intake Total 240 3431 Output Total 325 150 200 Balance -85 3281 -200 Lab Results Last 24 Hours: Laboratory Results - last 24 hr 06/19/19 06/19/19 06/19/19 Range/Units 06:12 11:00 11:00 WBC (4.5-11.0) K/uL RBC (4.30-5.90) M/uL Hgb 10.5 L D (12.0-15.0) g/dL Hct (40.0-54.0) % MCV (80-98) fL MCH (27-31) pg MCHC (32-36) % Plt Count (150-400) K/uL Neut % (Auto) (36-66) % Lymph % (Auto) (24-44) % Granville % (Auto) (2-6) % Eos % (Auto) (2-4) % Baso % (Auto) (0-1) % Sodium (140-148) mmol/L Potassium (3.6-5.2) mmol/L Chloride (100-108) mmol/L Carbon Dioxide (21-32) mmol/L Anion Gap (5.0-14.0) mmol/L BUN (7-18) mg/dL Creatinine (0.8-1.3) mg/dL Est Cr Clr Drug Dosing mL/min Estimated GFR (MDRD) (>60) Glucose (74-106) mg/dL Calcium (8.5-10.1) mg/dL Troponin I < 0.017 (0.000-0.056) ng/mL Blood Type A POSITIVE Gel Antibody Screen Negative Crossmatch See Detail 06/19/19 06/19/19 06/19/19 Range/Units 17:40 17:40 22:55 WBC (4.5-11.0) K/uL RBC (4.30-5.90) M/uL Hgb 10.3 L 9.1 L (12.0-15.0) g/dL Hct (40.0-54.0) % MCV (80-98) fL MCH (27-31) pg MCHC (32-36) % Plt Count (150-400) K/uL Neut % (Auto) (36-66) % Lymph % (Auto) (24-44) % Granville % (Auto) (2-6) % Eos % (Auto) (2-4) % Baso % (Auto) (0-1) % Sodium (140-148) mmol/L Potassium (3.6-5.2) mmol/L Chloride (100-108) mmol/L Carbon Dioxide (21-32) mmol/L Anion Gap (5.0-14.0) mmol/L BUN (7-18) mg/dL Creatinine (0.8-1.3) mg/dL Est Cr Clr Drug Dosing mL/min Estimated GFR (MDRD) (>60) Glucose (74-106) mg/dL Calcium (8.5-10.1) mg/dL Troponin I < 0.017 (0.000-0.056) ng/mL Blood Type Gel Antibody Screen Crossmatch 06/20/19 06/20/19 Range/Units 05:12 05:12 WBC 6.3 (4.5-11.0) K/uL RBC 3.01 L (4.30-5.90) M/uL Hgb 8.6 L (12.0-15.0) g/dL Hct 27.1 L (40.0-54.0) % MCV 90 (80-98) fL MCH 29 (27-31) pg MCHC 32 (32-36) % Plt Count 220 (150-400) K/uL Neut % (Auto) 63 (36-66) % Lymph % (Auto) 28 (24-44) % Granville % (Auto) 7 H (2-6) % Eos % (Auto) 1 L (2-4) % Baso % (Auto) 0 (0-1) % Sodium 143 (140-148) mmol/L Potassium 4.0 (3.6-5.2) mmol/L Chloride 111 H (100-108) mmol/L Carbon Dioxide 23 (21-32) mmol/L Anion Gap 13.0 (5.0-14.0) mmol/L BUN 22 H D (7-18) mg/dL Creatinine 0.8 (0.8-1.3) mg/dL Est Cr Clr Drug Dosing 76.28 mL/min Estimated GFR (MDRD) > 60 (>60) Glucose 113 H (74-106) mg/dL Calcium 7.6 L (8.5-10.1) mg/dL Troponin I (0.000-0.056) ng/mL Blood Type Gel Antibody Screen Crossmatch Jerome Results Last 24 Hours: Microbiology 06/19/19 05:51 Stool Occult Blood (JEROME) - Final Stool / Feces Med Orders - Current: Current Medications Acetaminophen (Tylenol) 650 mg PO Q4H PRN PRN Reason: Pain (Mild 1-3)/fever Dextrose (Glutose 15) 15 gm PO ONETIME PRN PRN Reason: Hypoglycemia Dextrose/Water (Dextrose 50% In Water) 50 ml IV ONETIME PRN PRN Reason: Hypoglycemia Escitalopram Oxalate (Lexapro) 20 mg PO BEDTIME [facility] Last Admin: 06/19/19 21:16 Dose: 20 mg Hydrochlorothiazide (Hydrochlorothiazide) 6.25 mg PO DAILY [facility] Last Admin: 06/19/19 10:07 Dose: Not Given Pantoprazole Sodium 80 mg/ (Sodium Chloride) 100 mls @ 10 mls/hr IV .Q10H [facility] Last Admin: 06/20/19 05:32 Dose: 10 mls/hr Insulin Human Lispro (Humalog) 0 unit SUBCUT QIDACANDBED [facility]; Protocol Last Admin: 06/19/19 21:17 Dose: Not Given Isosorbide Mononitrate (Imdur) 30 mg PO DAILY [facility] Last Admin: 06/19/19 10:06 Dose: Not Given Losartan Potassium (Cozaar) 50 mg PO DAILY [facility] Last Admin: 06/19/19 10:07 Dose: Not Given Ondansetron HCl (Zofran) 4 mg IV Q4H PRN PRN Reason: Nausea/Vomiting Sodium Chloride (Saline Flush) 10 ml FLUSH ASDIRECTED PRN PRN Reason: Keep Vein Open Sotalol HCl (Betapace) 80 mg PO BID [facility] Last Admin: 06/19/19 21:15 Dose: 80 mg Discontinued Medications Bisacodyl (Dulcolax) 10 mg PO ONETIME ONE Stop: 06/19/19 12:01 Last Admin: 06/19/19 11:55 Dose: 10 mg Bisacodyl (Dulcolax) 10 mg PO ONETIME ONE Stop: 06/19/19 20:01 Last Admin: 06/19/19 19:49 Dose: 10 mg Fentanyl (Sublimaze) Confirm Administered Dose 100 mcg .ROUTE .STK-MED ONE Stop: 06/20/19 08:55 Sodium Chloride (Normal Saline) 1,000 mls @ 999 mls/hr IV ASDIRECTED [facility] Last Admin: 06/19/19 05:38 Dose: 999 mls/hr Pantoprazole Sodium 80 mg/ (Sodium Chloride) 100 mls @ 200 mls/hr IV .BOLUS [facility] Last Admin: 06/19/19 06:32 Dose: 200 mls/hr Sodium Chloride (Normal Saline) 1,000 mls @ 350 mls/hr IV ASDIRECTED [facility] Last Admin: 06/19/19 06:23 Dose: 350 mls/hr Phytonadione 5 mg/ Sodium (Chloride) 50.5 mls @ 100 mls/hr IV NOW ONE Stop: 06/19/19 08:30 Last Admin: 06/19/19 08:16 Dose: 100 mls/hr Octreotide Acetate 500 mcg/ (Sodium Chloride) 500 mls @ 50 mls/hr IV Q10H [facility] Last Admin: 06/20/19 05:34 Dose: 50 mcg/hr, 50 mls/hr Sodium Chloride (Normal Saline) 1,000 mls @ 125 mls/hr IV ASDIRECTED [facility] Last Admin: 06/20/19 05:21 Dose: 125 mls/hr Octreotide Acetate (Sandostatin) 50 mcg IVPUSH ONETIME ONE Stop: 06/19/19 08:01 Last Admin: 06/19/19 08:14 Dose: 50 mcg Polyethylene Glycol (Miralax) 238 gm PO ONETIME ONE Stop: 06/19/19 17:01 Last Admin: 06/19/19 16:41 Dose: 238 gm Propofol (Diprivan 20 Ml) Confirm Administered Dose 200 mg .ROUTE .STK-MED ONE Stop: 06/19/19 10:45 Propofol (Diprivan 20 Ml) Confirm Administered Dose 200 mg .ROUTE .STK-MED ONE Stop: 06/20/19 08:54 - Exam General: Alert, Oriented, Cooperative, No Acute Distress Lungs: Clear to Auscultation, Normal Respiratory Effort Cardiovascular: Regular Rate, Regular Rhythm, No Murmurs GI/Abdominal Exam: Soft, Non-Tender, No Organomegaly, No Distention Extremities: Non-Tender, No Pedal Edema Sepsis Event Note - Evaluation Sepsis Screening Result: No Definite Risk - Focused Exam Vital Signs: Vital Signs Temp Pulse Resp BP Pulse Ox 06/20/19 08:29 97.1 F 60 17 116/66 99 06/20/19 06:00 17 110/54 L 95 06/20/19 05:00 96.6 F 18 95/42 L 97 06/20/19 04:00 17 99/54 L 96 06/20/19 03:00 16 96 06/20/19 02:00 17 106/43 L 96 06/20/19 01:00 18 115/54 L 95 06/20/19 00:00 97.2 F 20 98/42 L 96 06/19/19 22:00 20 94/34 L 95 Date Exam was Performed: 06/20/19 Time Exam was Performed: 09:21 - Problem List Review Problem List Initiated/Reviewed/Updated: Yes - My Orders Last 24 Hours: My Active Orders 06/19/19 08:25 Patient Status [ADT] Routine Ambulate [RC] QID Blood Glucose Check, Bedside [RC] QIDACANDBED Cardiac Monitoring [RC] .As Directed Communication Order [RC] STAT Diabetes Education [RC] Click to Edit Height and Weight [RC] DAILY Intake and Output [RC] QSHIFT Notify Provider Consults [RC] ASDIRECTED Notify Provider Vital Signs [RC] ASDIRECTED Notify Provider [RC] PRN Oxygen Therapy [RC] PRN Peripheral IV Care [RC] . DIRECTED Up With Assistance [RC] ASDIRECTED Up to Chair [RC] QID VTE/DVT Education [RC] Per Unit Routine Vital Signs [RC] Q1H Consult to Physician [CONS] Routine Acetaminophen [Tylenol] 650 mg PO Q4H PRN Dextrose 50% in Water 50 ml IV ONETIME PRN Dextrose [Glutose 15] 15 gm PO ONETIME PRN Ondansetron [Zofran] 4 mg IV Q4H PRN Sodium Chloride 0.9% [Saline Flush] 10 ml FLUSH ASDIRECTED PRN Peripheral IV Insertion Adult [OM.PC] Routine Sequential Compression Device [OM.PC] Per Unit Routine VTE Pharmacological Contraindications [AST] Per Unit Routine 06/19/19 08:30 Sodium Chloride 0.9% [Normal Saline] 100 ml Pantoprazole [ProTONIX IV] 80 mg IV 10 mls/hr 06/19/19 09:00 Isosorbide Mononitrate [Imdur] 30 mg PO DAILY Losartan [Cozaar] 50 mg PO DAILY Sotalol [Betapace] 80 mg PO BID hydroCHLOROthiazide 6.25 mg PO DAILY 06/19/19 11:00 Insulin Lispro [HumaLOG] See Protocol SUBCUT QIDACANDBED 06/19/19 21:00 Escitalopram [Lexapro] 20 mg PO BEDTIME 06/20/19 09:19 Convert IV to Saline Lock [OM.PC] Routine 06/20/19 13:00 HGB [HEMOGLOBIN] [HEME] Stat 06/20/19 21:00 HGB [HEMOGLOBIN] [HEME] Stat 06/21/19 05:11 HGB [HEMOGLOBIN] [HEME] AM 06/21/19 07:30 GLUCOSE POC LAB TO COLLECT [POC] QIDACANDBED 06/21/19 11:30 GLUCOSE POC LAB TO COLLECT [POC] QIDACANDBED 06/21/19 16:30 GLUCOSE POC LAB TO COLLECT [POC] QIDACANDBED 06/21/19 21:00 GLUCOSE POC LAB TO COLLECT [POC] QIDACANDBED 06/22/19 07:30 GLUCOSE POC LAB TO COLLECT [POC] QIDACANDBED 06/22/19 11:30 GLUCOSE POC LAB TO COLLECT [POC] QIDACANDBED 06/22/19 16:30 GLUCOSE POC LAB TO COLLECT [POC] QIDACANDBED 06/22/19 21:00 GLUCOSE POC LAB TO COLLECT [POC] QIDACANDBED 06/23/19 07:30 GLUCOSE POC LAB TO COLLECT [POC] QIDACANDBED 06/23/19 11:30 GLUCOSE POC LAB TO COLLECT [POC] QIDACANDBED 06/23/19 16:30 GLUCOSE POC LAB TO COLLECT [POC] QIDACANDBED 06/23/19 21:00 GLUCOSE POC LAB TO COLLECT [POC] QIDACANDBED 06/24/19 07:30 GLUCOSE POC LAB TO COLLECT [POC] QIDACANDBED - Plan Plan:: ASSESSMENT AND PLAN UPPER GI BLEED-associated with weakness, lightheadedness, and melenic stools. Well since admission with no further evidence of active bleeding, hemoglobin has dropped to 8.6. -Hold warfarin -Red blood cells on hold -Maintain 2 IV sites -Protonix 80 mg IV bolus given in the ED -Continuous infusion of Protonix IV -Discontinue octreotide bolus and continuous infusion -Serial hemoglobin levels -Colonoscopy pending, surgical follow-up per Dr. Whiting TYPE 2 DIABETES MELLITUS -Hold outpatient medications while n.p.o. -4 times daily glucometers -Low-dose sliding scale Humalog ATRIAL FIBRILLATION-rate well controlled -Continue outpatient medications MAINTENANCE ISSUES -DVT prophylaxis; anticoagulation contraindicated because because of acute bleed , SCUDs -GI prophylaxis; Protonix as above -Carson catheter; not indicated -Nutrition; n.p.o. -Nicotine dependence; not required CODE STATUS-FULL CODE ADMISSION STATUS-patient will be admitted to inpatient status, expect at least a 2 night hospital stay for evaluation and management of problems as outlined above. At the time of this admission I do not reasonably expected evaluation and management of this problem will require more than a 96 hour hospital stay. DISPOSITION-anticipate discharge to home after the hospital stay. PRIMARY CARE PROVIDER-Steven Jo
[2019-06-20] MEDS: Insulin Lispro 100 Unit/ML 3 ML KwikPen SUBCUT SCH ×3 (10:13→21:12)
[2019-06-20] MEDS: Sotalol 80 MG Tab PO SCH ×2 (10:19→21:15)
[2019-06-20] MEDS: Losartan 50 MG Tab PO SCH (10:19)
[2019-06-20] MEDS: Hydrochlorothiazide 25 MG Tab PO SCH (10:20)
[2019-06-20] MEDS: Isosorbide Mononitrate 30 MG Tab.ER PO SCH (10:21)
[2019-06-20] MEDS: busPIRone 10 MG Tab PO SCH ×2 (10:58→21:16)
[2019-06-20] MEDS ORDERED: Liraglutide (rDNA Origin) 0.6 MG/0.1 ML 3 ML Pen SUBCUT SCH (11:00)
--- NOTE | 2019-06-20 11:05 | OR ---
DATE OF PROCEDURE: 06/19/2019 SURGEON: Mehdi Whiting MD PROCEDURE: Esophagogastroduodenoscopy. FINDINGS: Normal Malu-en-Y except for some possible reflux disease, however, no evidence of old or new blood. RISKS: Risks, benefits, alternatives, limitations including but not limited to infection, bleeding, and perforation were explained to the patient who wished to proceed. PREOPERATIVE DIAGNOSIS: Gastrointestinal bleeding. POSTOPERATIVE DIAGNOSIS: Gastrointestinal bleeding. PROCEDURE IN DETAIL: The patient was placed in left lateral decubitus position. Esophagogastroduodenoscopy scope was introduced and advanced atraumatically into the second part into the Malu-en-Y limb itself. The Malu-en-Y limb and the blind end did not show any abnormalities. The pouch itself was maybe slightly enlarged, however, there was no evidence of old or new blood. No gastritis. No ulceration. The GE junction was normal. The esophagus was normal. The patient tolerated the procedure well. Mehdi Whiting MD /[id number]
--- NOTE | 2019-06-20 11:11 | OR ---
DATE OF PROCEDURE: 06/20/2019 SURGEON: Mehdi Whiting MD PROCEDURE: Colonoscopy. FINDINGS: 1. Ascending colon polyp, approximately 5 mm, completely removed using cold biopsy forceps. 2. Sigmoid colon polyp, approximately 5 mm, completely removed using hot snare wire. 3. Diverticulosis, mild, limited to sigmoid colon. 4. No old or new blood. COMPLICATIONS: None. LINE OPERATOR: None. ANESTHESIA: MAC. PREOPERATIVE DIAGNOSIS: Gastrointestinal bleeding. POSTOPERATIVE DIAGNOSIS: Gastrointestinal bleeding. RISKS: Risks, benefits, alternatives, and limitations including, but not limited to infection, bleeding, and perforation were explained to the patient, who wished to proceed. PROCEDURE IN DETAIL: The patient was placed in left lateral decubitus position. Digital rectal exam was performed without abnormality. The scope was introduced and advanced atraumatically to the ileocecal valve. The scope was brought back to the ascending, transverse, descending colon, and retroflexed. No evidence of old or new blood. Diverticulosis will be described as mild and mostly limited to sigmoid colon without evidence of diverticulitis. No abnormalities on retroflexion. The aforementioned polyps were identified and completely removed. No etiology for the low hemoglobin. Mehdi Whiting MD /[id number]
[2019-06-20 11:48] VITALS: PULSE 60
[2019-06-20] MEDS ORDERED: busPIRone 10 MG Tab PO SCH (21:00)
[2019-06-20] MEDS: Escitalopram 20 MG Tab PO SCH (21:15)
[2019-06-21] MEDS: Sodium Chloride 0.9% 100 ML with Pantoprazole 80 MG IV SCH ×2 (02:24)
--- NOTE | 2019-06-21 07:20 | PCM.DCSUM1 ---
Discharge Summary - Hospital Course Brief History: Mr. Leach is a 78-year-old gentleman who was admitted through the emergency department with weakness, lightheadedness, and melena, secondary to upper GI bleed. - Discharge Data Discharge Date: 06/21/19 Discharge Disposition: Home, Self-Care 01 Condition: Fair - Referral to Home Health Primary Care Physician: Steven Jo NP - Discharge Diagnosis/Problem(s) (1) Acute blood loss anemia SNOMED Code(s): 802288916 ICD Code: D62 - ACUTE POSTHEMORRHAGIC ANEMIA Status: Acute Current Visit : Yes (2) GI bleeding SNOMED Code(s): 02825184 ICD Code: K92.2 - GASTROINTESTINAL HEMORRHAGE, UNSPECIFIED Status: Acute Current Visit: Yes (3) Near syncope SNOMED Code(s): 217626805 ICD Code: R55 - SYNCOPE AND COLLAPSE Status: Acute Current Visit: Yes (4) History of Coumadin therapy SNOMED Code(s): 911013046 ICD Code: Z92.29 - PERSONAL HISTORY OF OTHER DRUG THERAPY Status: Acute Current Visit: Yes (5) Weakness generalized SNOMED Code(s): 27786263 ICD Code: R53.1 - WEAKNESS Status: Acute Current Visit: No (6) Atrial fibrillation SNOMED Code(s): 28534356 ICD Code: I48.91 - UNSPECIFIED ATRIAL FIBRILLATION Status: Chronic Current Visit: No Qualifiers: Atrial fibrillation type: paroxysmal Qualified Code(s): I48.0 - Paroxysmal atrial fibrillation - Patient Summary/Data Consults: Consultations 06/19/19 08:25 Consult to Physician [CONS] Routine Consulting Provider: Mehdi Whiting Call Completed to Consulting Physician: Yes Reason for Consult: UGI Bleed Hospital Course: Mr. Leach a 78-year-old gentleman who was admitted through the emergency department with weakness, lightheadedness, and melenic stools secondary to an upper GI bleed. He has had previous history of gastric bypass surgery and has had previous episode of GI bleed. 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 He is on long-term oral anticoagulation with warfarin because of underlying atrial fibrillation. He felt well yesterday but awoke early this morning feeling weak and lightheaded with melenic stools. He reports a mild episode of chest pain in the ambulance coming into the emergency department, troponin level is within normal range. INR is within therapeutic range at 2.3. While in the emergency department he was given an 80 mg dose of IV Protonix. On admission he was started on a continuous infusion of Protonix at 8 mg/h. He was also given a bolus dose of octreotide followed by continuous infusion of octreotide. 5 mg dose of vitamin K was given IV and he was given 2 units of fresh frozen plasma. 2 IV sites were started and maintained and 2 units of blood were placed on hold. On the morning of admission he was seen and evaluated by Dr. Whiting. EGD was performed which showed no obvious source of active bleeding. That day he received a colonoscopy prep and the following morning underwent colonoscopy by Dr. Whiting, again there was no obvious source of active bleeding identified on that procedure. 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 Serial hemoglobin levels were obtained and he did develop anemia related to his bleed. On the day of discharge his hemoglobin was 8.8. Transition to oral Protonix and will be discharged on Protonix 40 mg twice daily for 2 weeks, then once daily thereafter. I have been instructed him that he should remain on PPI therapy indefinitely. Warfarin was held on admission and will be held at the time of discharge for an additional 10 days. At that time he should restart the warfarin and follow-up in the Coumadin clinic in 4 days after restarting. 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 Mcpherson to consider surgical intervention. Patient wants to consider this further before seeing Dr. Mcpherson and understands that he is at risk for further bleeds. He will be started on iron supplement twice daily and will remain on this over the next few months. Activity will be as tolerated and he will resume his usual bariatric diet. Follow-up appointment will be scheduled with his primary care provider within 1 week, hemoglobin should be obtained at the time of the follow-up appointment. Will return immediately to the emergency department if he notes any recurrent symptoms of bleeding. - Patient Instructions Diet: Usual Diet as Tolerated Activity: As Tolerated Other/Special Instructions: Please schedule follow-up appointment with primary care provider within 1 week. Hemoglobin level should be obtained at the time of follow-up appointment. Take Protonix twice daily for the next 2 weeks then once daily thereafter. Hold warfarin for 10 days and then resume. Follow-up appointment in the Coumadin clinic 4 days after restarting warfarin. - Discharge Plan *PRESCRIPTION DRUG MONITORING PROGRAM REVIEWED*: Not Applicable *COPY OF PRESCRIPTION DRUG MONITORING REPORT IN PATIENT EFFIE: Not Applicable Prescriptions/Med Rec: Ferrous Gluconate 324 mg PO BID #60 tablet Pantoprazole [ProTONIX] 40 mg PO BIDAC #30 tab.cr Home Medications: Home Meds Acarbose [Precose] 25 mg PO TID 09/08/13 [History] Calcium Carb & Citrate/Vit D3 [Calcium + Vitamin D3 Caplet] 1 each PO DAILY [History] Cholecalciferol (Vitamin D3) [Vitamin D3] 5,000 units PO DAILY 09/08/13 [History ] Cyanocobalamin (Vitamin B-12) [Vitamin B-12] 1,000 mcg PO DAILY 09/08/13 [ History] Losartan/Hydrochlorothiazide [Hyzaar 100-12.5 Tablet] 0.5 each PO DAILY [History] Multivitamin [Multi-Vitamin Daily] 1 tab PO BID 09/08/13 [History] Vitamin B Complex 1 each PO DAILY 09/08/13 [History] Sotalol HCl [Sotalol] 80 mg PO BID 06/20/15 [History] Aspirin [Lo-Dose Aspirin EC] 81 mg PO DAILY 09/18/17 [History] Liraglutide [Victoza] 0.6 mg SQ DAILY 09/18/17 [History] Nitroglycerin [Nitrostat] 0.4 mg SL ASDIRECTED 09/18/17 [History] Isosorbide Mononitrate [Imdur] 30 mg PO DAILY 01/17/18 [History] Escitalopram [Lexapro] 20 mg PO BEDTIME 02/25/18 [History] busPIRone [Buspar] 10 mg PO BID 02/25/18 [History] Ferrous Gluconate 324 mg PO BID #60 tablet 06/21/19 [Rx] Pantoprazole [ProTONIX] 40 mg PO BIDAC #30 tab.cr 06/21/19 [Rx] Referrals: Steven Jo, HEM INSPECTOR [Primary Care Provider] - - Discharge Summary/Plan Comment DC Time >30 min.: No - Patient Data Vitals - Most Recent: Last Vital Signs Temp 96.5 F 06/21/19 04:00 Pulse 60 06/20/19 21:15 Resp 18 06/21/19 06:00 BP 118/56 L 06/21/19 06:00 Pulse Ox 95 06/21/19 06:00 Weight - Most Recent: 228 lb 0.2 oz I&O - Last 24 hours: Intake & Output 06/20/19 06/21/19 06/21/19 22:59 06:59 14:59 Intake Total 1007 358 Output Total 200 350 Balance 807 8 Lab Results - Last 24 hrs: Laboratory Results - last 24 hr 06/20/19 06/20/19 06/21/19 Range/Units 13:00 21:00 04:55 Hgb 8.1 L 8.1 L 8.8 L (12.0-15.0) g/dL Med Orders - Current: Current Medications Acetaminophen (Tylenol) 650 mg PO Q4H PRN PRN Reason: Pain (Mild 1-3)/fever Buspirone HCl (Buspar) 10 mg PO BID [facility] Last Admin: 06/20/19 21:16 Dose: 10 mg Dextrose (Glutose 15) 15 gm PO ONETIME PRN PRN Reason: Hypoglycemia Dextrose/Water (Dextrose 50% In Water) 50 ml IV ONETIME PRN PRN Reason: Hypoglycemia Escitalopram Oxalate (Lexapro) 20 mg PO BEDTIME [facility] Last Admin: 06/20/19 21:15 Dose: 20 mg Hydrochlorothiazide (Hydrochlorothiazide) 6.25 mg PO DAILY [facility] Last Admin: 06/20/19 10:20 Dose: 6.25 mg Insulin Human Lispro (Humalog) 0 unit SUBCUT QIDACANDBED [facility]; Protocol Last Admin: 06/20/19 21:12 Dose: Not Given Isosorbide Mononitrate (Imdur) 30 mg PO DAILY [facility] Last Admin: 06/20/19 10:21 Dose: 30 mg Liraglutide (Victoza) 0.6 mg SUBCUT DAILY [facility] Last Admin: 06/20/19 11:01 Dose: 0.6 unit Losartan Potassium (Cozaar) 50 mg PO DAILY [facility] Last Admin: 06/20/19 10:19 Dose: 50 mg Ondansetron HCl (Zofran) 4 mg IV Q4H PRN PRN Reason: Nausea/Vomiting Pantoprazole Sodium (Protonix) 40 mg PO BIDAC [facility] Sodium Chloride (Saline Flush) 10 ml FLUSH ASDIRECTED PRN PRN Reason: Keep Vein Open Sotalol HCl (Betapace) 80 mg PO BID [facility] Last Admin: 06/20/19 21:15 Dose: 80 mg Discontinued Medications Bisacodyl (Dulcolax) 10 mg PO ONETIME ONE Stop: 06/19/19 12:01 Last Admin: 06/19/19 11:55 Dose: 10 mg Bisacodyl (Dulcolax) 10 mg PO ONETIME ONE Stop: 06/19/19 20:01 Last Admin: 06/19/19 19:49 Dose: 10 mg Buspirone HCl (Buspar) 10 mg PO BID [facility] Fentanyl (Sublimaze) Confirm Administered Dose 100 mcg .ROUTE .STK-MED ONE Stop: 06/20/19 08:55 Sodium Chloride (Normal Saline) 1,000 mls @ 999 mls/hr IV ASDIRECTED [facility] Last Admin: 06/19/19 05:38 Dose: 999 mls/hr Pantoprazole Sodium 80 mg/ (Sodium Chloride) 100 mls @ 200 mls/hr IV .BOLUS [facility] Last Admin: 06/19/19 06:32 Dose: 200 mls/hr Sodium Chloride (Normal Saline) 1,000 mls @ 350 mls/hr IV ASDIRECTED [facility] Last Admin: 06/19/19 06:23 Dose: 350 mls/hr Pantoprazole Sodium 80 mg/ (Sodium Chloride) 100 mls @ 10 mls/hr IV .Q10H [facility] Last Admin: 06/21/19 02:24 Dose: 10 mls/hr Phytonadione 5 mg/ Sodium (Chloride) 50.5 mls @ 100 mls/hr IV NOW ONE Stop: 06/19/19 08:30 Last Admin: 06/19/19 08:16 Dose: 100 mls/hr Octreotide Acetate 500 mcg/ (Sodium Chloride) 500 mls @ 50 mls/hr IV Q10H [facility] Last Admin: 06/20/19 05:34 Dose: 50 mcg/hr, 50 mls/hr Sodium Chloride (Normal Saline) 1,000 mls @ 125 mls/hr IV ASDIRECTED [facility] Last Admin: 06/20/19 05:21 Dose: 125 mls/hr Octreotide Acetate (Sandostatin) 50 mcg IVPUSH ONETIME ONE Stop: 06/19/19 08:01 Last Admin: 06/19/19 08:14 Dose: 50 mcg Polyethylene Glycol (Miralax) 238 gm PO ONETIME ONE Stop: 06/19/19 17:01 Last Admin: 06/19/19 16:41 Dose: 238 gm Propofol (Diprivan 20 Ml) Confirm Administered Dose 200 mg .ROUTE .STK-MED ONE Stop: 06/19/19 10:45 Propofol (Diprivan 20 Ml) Confirm Administered Dose 200 mg .ROUTE .STK-MED ONE Stop: 06/20/19 08:54 - Exam General: Reports: Alert, Oriented, Cooperative, No Acute Distress Lungs: Reports: Clear to Auscultation, Normal Respiratory Effort Cardiovascular: Reports: Regular Rate, No Murmurs, Irregular Rhythm GI/Abdominal Exam: Soft, Non-Tender, No Organomegaly, No Distention Extremities: Non-Tender, No Pedal Edema *Q Meaningful Use (DIS) - VTE *Q VTE Pharmacological Contraindications *Q: Active Hemorrhage
[2019-06-21] MEDS ORDERED: Pantoprazole 40 MG Tab.CR PO SCH (07:30)
[2019-06-21 08:53] VITALS: BP 109/57
== END 2019-06-21 09:25 | disposition home or self-care (01) | DRG 394 ==
LOC: JP.ED 05:00 → JP.ICU 07:46
PROVIDERS: ADMIT Hospitalist; ATTEND Hospitalist
PROC: 0DJ08ZZ Inspection of Upper Intestinal Tract, Via Natural or Artificial Opening Endoscopic (ICD-10-PCS; 2019-06-19)
PROC: 30233K1 Transfusion of Nonautologous Frozen Plasma into Peripheral Vein, Percutaneous Approach (ICD-10-PCS; principal; 2019-06-20)
PROC: 0DBK8ZZ Excision of Ascending Colon, Via Natural or Artificial Opening Endoscopic (ICD-10-PCS; 2019-06-20)
PROC: 0DBN8ZZ Excision of Sigmoid Colon, Via Natural or Artificial Opening Endoscopic (ICD-10-PCS; 2019-06-20)
DX: K95.89 Other complications of other bariatric procedure (principal); R55 Syncope and collapse; K92.2 Gastrointestinal hemorrhage, unspecified; D62 Acute posthemorrhagic anemia; K31.89 Other diseases of stomach and duodenum; I48.91 Unspecified atrial fibrillation; I48.0 Paroxysmal atrial fibrillation; K57.30 Diverticulosis of large intestine without perforation or abscess without bleeding; R07.9 Chest pain, unspecified; H91.90 Unspecified hearing loss, unspecified ear; H54.7 Unspecified visual loss; Z82.49 Family history of ischemic heart disease and other diseases of the circulatory system; J44.9 Chronic obstructive pulmonary disease, unspecified; I25.10 Atherosclerotic heart disease of native coronary artery without angina pectoris; N42.9 Disorder of prostate, unspecified; R35.1 Nocturia; F41.9 Anxiety disorder, unspecified; F32.9 Major depressive disorder, single episode, unspecified; E11.9 Type 2 diabetes mellitus without complications; E66.9 Obesity, unspecified; Z92.29 Personal history of other drug therapy; Z90.49 Acquired absence of other specified parts of digestive tract; Z98.84 Bariatric surgery status; Z79.01 Long term (current) use of anticoagulants; Z79.82 Long term (current) use of aspirin; Z79.899 Other long term (current) drug therapy; Z91.041 Radiographic dye allergy status; Z88.8 Allergy status to other drugs, medicaments and biological substances; Z95.0 Presence of cardiac pacemaker; Z95.5 Presence of coronary angioplasty implant and graft; Z86.73 Personal history of transient ischemic attack (TIA), and cerebral infarction without residual deficits; Z98.49 Cataract extraction status, unspecified eye; Z68.34 Body mass index [BMI] 34.0-34.9, adult
CPT/HCPCS: 36415; 71045; 80053; 82272; 84484 ×2; 85025; 85610; 86850; 86900; 86901; 86920; 86922; 93005; 93010; 96361; 96365; 99285; C9113; J7030 ×2; J7050; 36430; 80048; 82962; 85018; 88305; A9270-GY; J2354; J2704; J3010; J3430; J7040; P9017

== ENCOUNTER 2022-06-25 18:11 | Emergency (ER) | payer MEDICARE, BC ==
[2022-06-25 18:24] VITALS: BP 139/63; PULSE 60
== END 2022-06-25 19:46 | disposition home or self-care (01) ==
LOC: JP.ED 18:11
DX: H61.21 Impacted cerumen, right ear (principal); I25.10 Atherosclerotic heart disease of native coronary artery without angina pectoris; J44.9 Chronic obstructive pulmonary disease, unspecified; E11.9 Type 2 diabetes mellitus without complications; Z91.041 Radiographic dye allergy status; Z88.6 Allergy status to analgesic agent; Z88.8 Allergy status to other drugs, medicaments and biological substances; Z79.899 Other long term (current) drug therapy; Z79.82 Long term (current) use of aspirin; Z79.01 Long term (current) use of anticoagulants; Z90.49 Acquired absence of other specified parts of digestive tract
CPT/HCPCS: 99281; 99282

== ENCOUNTER 2024-03-23 07:13 | Emergency (ER) | payer MEDICARE, BC ==
[2024-03-23 07:32] VITALS: BP 108/63; PULSE 65
[2024-03-23 08:22] LABS: APPEARANCE,URINE SLIGHTLY CLOUDY (CLEAR); BILIRUBIN,URINE NEGATIVE (NEGATIVE); COLOR,URINE YELLOW (YELLOW); GLUCOSE,URINE NEGATIVE (NEGATIVE); KETONES,URINE NEGATIVE (NEGATIVE); LEUKOCYTE ESTERASE,URINE SMALL (NEGATIVE); NITRITE,URINE POSITIVE (NEGATIVE); OCCULT BLOOD,URINE MODERATE (NEGATIVE); PROTEIN,URINE 30 mg/dL (NEGATIVE)
[2024-03-23 08:23] LABS: BASOPHILS ABSOLUTE AUTO 0.03 K/uL (0.00-0.10); BASOPHILS PERCENT AUTO 0.3 % (0.1-1.3); EOSINOPHILS ABSOLUTE AUTO 0.19 K/uL (0.00-0.40); EOSINOPHILS PERCENT AUTO 1.8 % (0.0-5.4); HEMATOCRIT 40.9 % (38.4-49.7); IMMATURE GRAN ABSOLUTE AUTO 0.04 K/uL (0.00-0.23); IMMATURE GRAN PERCENT AUTO 0.4 % (0.0-0.7); LYMPHOCYTES ABSOLUTE AUTO 1.12 K/uL (0.8-3.3); LYMPHOCYTES PERCENT AUTO 10.5 % (11.4-47.7); MEAN CORPUSCULAR HEMOGLOBIN 30.4 pg (31.6-35.5); MEAN CORPUSCULAR HGB CONC 34.2 g/dL (31.6-35.5); MEAN CORPUSCULAR VOLUME 88.9 fL (81.4-99.0); MONOCYTES ABSOLUTE AUTO 1.35 K/uL (0.20-0.90); MONOCYTES PERCENT AUTO 12.6 % (3.3-12.6); NEUTROPHILS ABSOLUTE AUTO 7.97 K/uL (1.0-7.6); NEUTROPHILS PERCENT AUTO 74.4 % (40.0-78.1); PLATELET COUNT,PLT 289 K/uL (130-375); WHITE BLOOD CELL COUNT,WBC 10.7 K/uL (3.2-11.0)
[2024-03-23 08:30] LABS: AMORPHOUS SEDIMENT,URINE NOT SEEN; BACTERIA,URINE MODERATE; EPITHELIAL CELLS,URINE RARE; MUCUS,URINE MODERATE; WBC,URINE SEMI-PACKED (0-5)
[2024-03-23 08:41] LABS: INR 3.3; PROTHROMBIN TIME 32.4 sec (9.2-10.6)
[2024-03-23 08:49] LABS: A/G RATIO 0.7 (1.2-2.2); ALANINE AMINOTRANSFERASE,ALT 31 U/L (12-78); ALBUMIN 2.7 g/dL (3.4-5.0); ALKALINE PHOSPHATASE 86 U/L (46-116); ANION GAP 6.5 mmol/L (5.0-14.0); ASPARTATE AMNIOTRANSFERASE,AST 22 U/L (15-37); BILIRUBIN TOTAL 0.6 mg/dL (0.2-1.0); BLOOD UREA NITROGEN,BUN 21 mg/dL (7-18); CALCIUM 8.9 mg/dL (8.5-10.1); CARBON DIOXIDE,CO2 31 mmol/L (21-32); CHLORIDE,CL 104 mmol/L (100-108); EST CRCL DRUG DOSING (CG) 57.93 mL/min; ESTIMATED GFR 76 mL/min (>60); GLUCOSE RANDOM 103 mg/dL (74-106); POTASSIUM,K 3.7 mmol/L (3.6-5.2); PROTEIN TOTAL,TP 6.5 g/dL (6.4-8.2); SODIUM,NA 141 mmol/L (140-148); TROPONIN I HIGH SENSITIVITY < 4.0 pg/mL (<=60.3)
[2024-03-23 08:55] LABS: CORONAVIRUS COVID-19 NAA NEGATIVE (NEGATIVE); INFLUENZA A NAA NEGATIVE (NEGATIVE); INFLUENZA B NAA NEGATIVE (NEGATIVE); RESPIRATORY SYNCYTIAL VIR NAA NEGATIVE (NEGATIVE)
[2024-03-23 09:15] LABS: LYME AB IgG Negative (Negative); LYME AB IgM Negative (Negative)
[2024-03-25 18:42] LABS: ANAPLASMA PHAGOCYTOPHILUM PCR Not Detected; BABESIA MICROTI BY PCR Not Detected; BABESIA SPECIES BY PCR Not Detected; EHRLICHIA CHAFFEENSIS BY PCR Not Detected; EHRLICHIA EWINGII/CANIS BY PCR Not Detected; EHRLICHIA MURIS-LIKE BY PCR Not Detected
== END 2024-03-23 09:49 | disposition home or self-care (01) ==
LOC: JP.ED 07:13
DX: E86.0 Dehydration (principal); N39.0 Urinary tract infection, site not specified; I48.91 Unspecified atrial fibrillation; I25.10 Atherosclerotic heart disease of native coronary artery without angina pectoris; Z95.0 Presence of cardiac pacemaker; J44.9 Chronic obstructive pulmonary disease, unspecified; Z86.73 Personal history of transient ischemic attack (TIA), and cerebral infarction without residual deficits; E11.9 Type 2 diabetes mellitus without complications; Z79.82 Long term (current) use of aspirin; Z79.01 Long term (current) use of anticoagulants; Z79.899 Other long term (current) drug therapy; Z91.041 Radiographic dye allergy status; Z88.8 Allergy status to other drugs, medicaments and biological substances; Z88.5 Allergy status to narcotic agent
CPT/HCPCS: 0241U; 36415; 80053; 80307; 81001; 83605; 84145; 84484; 85025; 85610; 86618; 87468; 87469; 87484; 87798; 93005; 93010; 99285